=== PATIENT | female | born 1955 | race Caucasian/White ===

== ENCOUNTER 2022-03-23 04:09 | Emergency (ER) | payer MEDICARE, MEDICAID, SELFPAY ==
[2022-03-23 04:21] VITALS: BP 131/100; PULSE 90; RESP 16; TEMP 37.1; O2SAT 97; BMI 25.0
--- NOTE | 2022-03-23 04:23 | CTR_ITS ---
PROCEDURE INFORMATION: Exam: CT Abdomen And Pelvis Without Contrast Exam date and time: 03/23/2022 4:34 AM Age: 67 years old Clinical indication: Abdominal pain; Localized; Prior surgery; Surgery type: Gb. Appy. ; Patient HX: C/O lower abd/pelvic pain. ; Additional info: Abd pain TECHNIQUE: Imaging protocol: Computed tomography of the abdomen and pelvis without contrast. Radiation optimization: All CT scans at this facility use at least one of these dose optimization techniques: automated exposure control; mA and/or kV adjustment per patient size (includes targeted exams where dose is matched to clinical indication); or iterative reconstruction. COMPARISON: No relevant prior studies available. RADIATION DOSE METRICS: Total DLP (mGy-cm): 1021.14 FINDINGS: Lungs: The visualized lung bases demonstrate no focal airspace opacification or pleural effusion. Heart: The visualized heart is within normal limits for size. There is no evidence of pericardial abnormality. Diaphragm: Small hiatal hernia. Liver: The liver is normal in size and contour. Gallbladder and bile ducts: The gallbladder is surgically absent. Pancreas: Mild fatty atrophy of the pancreas. Spleen: The spleen appears normal. Adrenal glands: The adrenals appear normal. Kidneys and ureters: The kidneys empty into non-dilated ureters. Nonobstructing left-sided nephrolithiasis. No ureteral stones are identified. No perinephric or periureteral fat tissue stranding is identified. Stomach and bowel: A few colonic diverticula noted. No signs of acute diverticulitis. The stomach and small bowel are unremarkable. Appendix: The appendix is surgically absent. Intraperitoneal space: No ascites or significant fluid collection. Vasculature: The aorta is nonaneurysmal. The IVC appears normal. Lymph nodes: There are no enlarged lymph nodes. Urinary bladder: Mild wall thickening of the bladder with surrounding fat stranding. Reproductive: The uterus appears normal. Bones/joints: Mild multilevel degenerative changes in the spine. Soft tissues: Unremarkable. CT/CT kidney stone [id number] IMPRESSION: 1. Findings concerning for cystitis. Recommend correlation with urinalysis. 2. Nonobstructing left-sided nephrolithiasis. 3. Small hiatal hernia. 4. Colonic diverticulosis without evidence of acute diverticulitis. COMMENTS: Evaluation of solid organs and vascular structures is limited as no IV contrast was administered.
--- NOTE | 2022-03-23 04:24 | ED_ITS ---
Documented by User: Lissa Tilley MD 03/23/22 18:42 HPI - Abdominal Pain General: Chief Complaint: Abdominal Pain Stated Complaint: PT says kidney stones Time Seen by Provider: 03/23/22 04:20 Source: patient Mode of arrival: ambulatory Limitations: no limitations History of Present Illness: 67-year-old female who states she has been having suprapubic abdominal pain over the last 4 to 5 days she states she was referred to someone in [place] as her PCP checked her urine last week and she had blood in her urine she concerned she may have a kidney stone she has not been on any antibiotics has no known urinary tract infection and states her pain is sharp in nature rates an 8 out of 10 denies any vomiting or diarrhea or fevers denies any worsening improving factors Associated Symptoms: Denies chills, dysuria and fever(s) Review of Systems Const: Denies: fever(s), chills, body aches or change in appetite Eyes: Denies: blurry vision or eye discomfort ENMT: Denies: throat pain or dental pain Card: Denies: chest pain Resp: Denies: dyspnea GI: Reports: abdominal pain : Denies: dysuria Musc: Denies: neck pain or back pain Skin/Breast: Denies: rash Neuro: Denies: headache(s) Psych: Denies: depression Yariel/Lymph: Denies: easy bruising All/Imm: Denies: urticaria PFSH ED PFSH: Medical History (Updated 03/23/22 @ 06:17 by Blaze Louie DO) Hypertension Social History (Updated 03/23/22 @ 04:25 by Lissa Tilley MD) Substance/Drug Use: never Physical Exam Const: COMMON NORMALS: no acute distress, patient oriented x3 and healthy appearing HENMT: COMMON NORMALS: normocephalic and atraumatic HEAD & SCALP: normocephalic and atraumatic Eye: COMMON NORMALS: Equal, round and reactive pupils present and EOMs intact bilaterally PUPIL: Yes Equal, round and reactive pupils present Neck/C-Spine: COMMON NORMALS: full ROM and supple Chest: COMMONS NORMALS: normal inspection of the chest and normal palpation of entire chest wall Resp: COMMON NORMALS: normal respiratory effort, No retractions, No use of accessory muscles and clear to auscultation bilaterally AUSCULTATION: clear to auscultation bilaterally Cardio: COMMON NORMALS: regular rate, regular rhythm and No murmurs present (Cardio) RATE: regular rate RHYTHM: regular rhythm GI: COMMON NORMALS: Normal to inspection, nondistended, normoactive bowel sounds present, Soft to palpation and no masses PALPATION: Yes Soft to palpation OTHER: suprapubic tenderness Extremity: COMMON NORMALS: normal to inspection and full ROM Neuro: COMMON NORMALS: patient oriented x3, moves all extremities and no focal motor deficits Psych: COMMON NORMALS: mental status grossly normal, Normal thought process present and cooperative THOUGHT PROCESS: Normal thought process present Skin: COMMON NORMALS: no rashes or lesions noted and no wounds GENERAL SKIN EXAM: no rashes or lesions noted Course Vital Signs: Vital signs: Vital Signs Temperature 98.8 F 03/23/22 04:21 Pulse Rate 55 L 03/23/22 07:18 Respiratory Rate 16 03/23/22 07:18 Blood Pressure 103/55 03/23/22 07:18 Pulse Oximetry 98 03/23/22 07:18 MDM - Abdominal Pain Medical Decision Making Patient presents here with suprapubic pain likely a cystitis patient is pending her urinalysis care turned over to Dr. Valle Lab Data : 03/23/22 04:55 03/23/22 04:55 Labs/Radiology: Radiology Impressions Abdomen/Pelvis CT 03/23/22 04:23 IMPRESSION: 1. Findings concerning for cystitis. Recommend correlation with urinalysis. 2. Nonobstructing left-sided nephrolithiasis. 3. Small hiatal hernia. 4. Colonic diverticulosis without evidence of acute diverticulitis. COMMENTS: Evaluation of solid organs and vascular structures is limited as no IV contrast was administered. Laboratory Results WBC 6.0 10^3/uL (4.0-10.0) 03/23/22 04:55 RBC 4.24 10^6/uL (4.1-5.3) 03/23/22 04:55 Hgb 11.9 g/dL (11.5-15.3) 03/23/22 04:55 Hct 36.3 % (37.0-47.0) L 03/23/22 04:55 MCV 85.6 fl (81-99) 03/23/22 04:55 MCH 28.1 pg (28.0-34.0) 03/23/22 04:55 MCHC 32.8 g/dL (30.0-36.0) 03/23/22 04:55 RDW 14.2 % (12.1-15.1) 03/23/22 04:55 Plt Count 166 10^3/cmm (130-400) 03/23/22 04:55 MPV 11.5 fL (7.4-10.4) H 03/23/22 04:55 Neut % (Auto) 72.4 % 03/23/22 04:55 Lymph % (Auto) 15.7 % 03/23/22 04:55 [place] % (Auto) 7.2 % 03/23/22 04:55 Eos % (Auto) 3.7 % 03/23/22 04:55 Baso % (Auto) 0.7 % 03/23/22 04:55 Neut # (Auto) 4.32 10^3/uL (1.8-7.7) 03/23/22 04:55 Lymph # (Auto) 0.9 10^3/uL (0.8-4.8) 03/23/22 04:55 [place] # (Auto) 0.4 10^3/uL (0.2-0.9) 03/23/22 04:55 Eos # (Auto) 0.2 10^3/uL (0.0-0.8) 03/23/22 04:55 Baso # (Auto) 0.0 10^3/uL (0.0-0.1) 03/23/22 04:55 Nucleated RBC % (auto) 0 % 03/23/22 04:55 Nucleated RBCs # 0.0 /100WBC 03/23/22 04:55 Sodium 139 mmol/L (136-145) 03/23/22 04:55 Potassium 3.3 mmol/L (3.5-5.1) L 03/23/22 04:55 Chloride 106 mmol/L (98-107) 03/23/22 04:55 Carbon Dioxide 23 mmol/L (22-29) 03/23/22 04:55 Anion Gap 13.3 (5-19) 03/23/22 04:55 BUN 18 mg/dL (8-23) 03/23/22 04:55 Creatinine 1.0 mg/dL (0.5-0.9) H 03/23/22 04:55 GFR Calculation 55.6 mL/min (90-130) L 03/23/22 04:55 Glucose 111 mg/dL (65-115) 03/23/22 04:55 Calculated Osmolality 291 mOsm/kg (285-295) 03/23/22 04:55 Calcium 9.5 mg/dL (8.5-10.5) 03/23/22 04:55 Total Bilirubin 0.3 mg/dL (0.15-1.2) 03/23/22 04:55 AST 18 U/L (0-32) 03/23/22 04:55 ALT 12 U/L (0-33) 03/23/22 04:55 Alkaline Phosphatase 69 IU/L (35-105) 03/23/22 04:55 Total Protein 7.2 g/dL (6.6-8.7) 03/23/22 04:55 Albumin 4.1 g/dL (3.5-5.2) 03/23/22 04:55 Globulin 3.1 g/dL (1.3-4.6) 03/23/22 04:55 Lipase 33 U/L (13-60) 03/23/22 04:55 Urine Color Yellow (Yellow) 03/23/22 05:48 Urine Appearance Sl hazy (CLEAR) 03/23/22 05:48 Urine pH 5 (5-7) 03/23/22 05:48 Ur Specific [place] 1.010 (1.005-1.030) 03/23/22 05:48 Urine Protein Trace (Negative) 03/23/22 05:48 Urine Glucose (UA) Norm (Normal) 03/23/22 05:48 Urine Ketones Negative (Negative) 03/23/22 05:48 Urine Blood 2+ (Negative) H 03/23/22 05:48 Urine Nitrate Negative (Negative) 03/23/22 05:48 Urine Bilirubin Neg (Negative) 03/23/22 05:48 Urine Urobilinogen Norm mg/dL (Negative) 03/23/22 05:48 Ur Leukocyte Esterase 2+ (Negative) H 03/23/22 05:48 Urine RBC 15-25 /hpf (0-2) H 03/23/22 05:48 Urine WBC 55-80 /hpf (0-5) H 03/23/22 05:48 Ur Squamous Epith Cells 0-4 /hpf (0-5) H 03/23/22 05:48 Amorphous Sediment Not Reportable 03/23/22 05:48 Urine Bacteria Trace /hpf (NONE) 03/23/22 05:48 Urine Mucus Trace /hpf 03/23/22 05:48 Discharge Plan Discharge Patient Disposition: Home Clinical Impression: Cystitis Condition: Stable Prescriptions: New Cipro 500 mg tablet 500 mg PO BID Qty: 14 0RF Discharge Orders: Discharge ED (Routine); Ordered 03/23/22 Ordered By: Blaze Louie Discharge Diet: Usual diet Discharge Activity: Increase activity as tolerated Patient Instructions: Opioid Safety Activity Restrictions/Additional Instructions: Start oral antibiotics this evening. Follow-up with your primary care doctor if not improving. Return to emergency room if worsening. Sign Out Sign Out Data: Patient Sign Out occurred on 03/23/22 at 06:10. Patient's care was discussed, and care was transferred from to Blaze Louie DO. Coding Level of Care Code ED Orthotics Technician for Chg Fwd Exam Comprehensive Documented by User: Blaze Louie DO 03/29/22 14:48 HPI - Abdominal Pain General: Chief Complaint: Abdominal Pain Stated Complaint: PT says kidney stones Time Seen by Provider: 03/23/22 04:20 PFS ED PFSH: Medical History (Updated 03/23/22 @ 06:17 by Blaze Louie DO) Hypertension Social History (Updated 03/23/22 @ 04:25 by Lissa Tilley MD) Substance/Drug Use: never Course Vital Signs: Vital signs: Vital Signs Temperature 98.8 F 03/23/22 04:21 Pulse Rate 55 L 03/23/22 07:18 Respiratory Rate 16 03/23/22 07:18 Blood Pressure 103/55 03/23/22 07:18 Pulse Oximetry 98 03/23/22 07:18 MDM - Abdominal Pain Medical Decision Making Patient presents here with suprapubic pain likely a cystitis patient is pending her urinalysis care turned over to Dr. Valle Care assumed at change of shift. UA reviewed shows cystitis discharged home with antibiotics follow-up with primary care Medical Records I reviewed the patient's medical records. Lab Data I reviewed the patient's lab results. : 03/23/22 04:55 03/23/22 04:55 Labs/Radiology: Radiology Impressions Abdomen/Pelvis CT 03/23/22 04:23 IMPRESSION: 1. Findings concerning for cystitis. Recommend correlation with urinalysis. 2. Nonobstructing left-sided nephrolithiasis. 3. Small hiatal hernia. 4. Colonic diverticulosis without evidence of acute diverticulitis. COMMENTS: Evaluation of solid organs and vascular structures is limited as no IV contrast was administered. Laboratory Results WBC 6.0 10^3/uL (4.0-10.0) 03/23/22 04:55 RBC 4.24 10^6/uL (4.1-5.3) 03/23/22 04:55 Hgb 11.9 g/dL (11.5-15.3) 03/23/22 04:55 Hct 36.3 % (37.0-47.0) L 03/23/22 04:55 MCV 85.6 fl (81-99) 03/23/22 04:55 MCH 28.1 pg (28.0-34.0) 03/23/22 04:55 MCHC 32.8 g/dL (30.0-36.0) 03/23/22 04:55 RDW 14.2 % (12.1-15.1) 03/23/22 04:55 Plt Count 166 10^3/cmm (130-400) 03/23/22 04:55 MPV 11.5 fL (7.4-10.4) H 03/23/22 04:55 Neut % (Auto) 72.4 % 03/23/22 04:55 Lymph % (Auto) 15.7 % 03/23/22 04:55 [place] % (Auto) 7.2 % 03/23/22 04:55 Eos % (Auto) 3.7 % 03/23/22 04:55 Baso % (Auto) 0.7 % 03/23/22 04:55 Neut # (Auto) 4.32 10^3/uL (1.8-7.7) 03/23/22 04:55 Lymph # (Auto) 0.9 10^3/uL (0.8-4.8) 03/23/22 04:55 [place] # (Auto) 0.4 10^3/uL (0.2-0.9) 03/23/22 04:55 Eos # (Auto) 0.2 10^3/uL (0.0-0.8) 03/23/22 04:55 Baso # (Auto) 0.0 10^3/uL (0.0-0.1) 03/23/22 04:55 Nucleated RBC % (auto) 0 % 03/23/22 04:55 Nucleated RBCs # 0.0 /100WBC 03/23/22 04:55 Sodium 139 mmol/L (136-145) 03/23/22 04:55 Potassium 3.3 mmol/L (3.5-5.1) L 03/23/22 04:55 Chloride 106 mmol/L (98-107) 03/23/22 04:55 Carbon Dioxide 23 mmol/L (22-29) 03/23/22 04:55 Anion Gap 13.3 (5-19) 03/23/22 04:55 BUN 18 mg/dL (8-23) 03/23/22 04:55 Creatinine 1.0 mg/dL (0.5-0.9) H 03/23/22 04:55 GFR Calculation 55.6 mL/min (90-130) L 03/23/22 04:55 Glucose 111 mg/dL (65-115) 03/23/22 04:55 Calculated Osmolality 291 mOsm/kg (285-295) 03/23/22 04:55 Calcium 9.5 mg/dL (8.5-10.5) 03/23/22 04:55 Total Bilirubin 0.3 mg/dL (0.15-1.2) 03/23/22 04:55 AST 18 U/L (0-32) 03/23/22 04:55 ALT 12 U/L (0-33) 03/23/22 04:55 Alkaline Phosphatase 69 IU/L (35-105) 03/23/22 04:55 Total Protein 7.2 g/dL (6.6-8.7) 03/23/22 04:55 Albumin 4.1 g/dL (3.5-5.2) 03/23/22 04:55 Globulin 3.1 g/dL (1.3-4.6) 03/23/22 04:55 Lipase 33 U/L (13-60) 03/23/22 04:55 Urine Color Yellow (Yellow) 03/23/22 05:48 Urine Appearance Sl hazy (CLEAR) 03/23/22 05:48 Urine pH 5 (5-7) 03/23/22 05:48 Ur Specific [place] 1.010 (1.005-1.030) 03/23/22 05:48 Urine Protein Trace (Negative) 03/23/22 05:48 Urine Glucose (UA) Norm (Normal) 03/23/22 05:48 Urine Ketones Negative (Negative) 03/23/22 05:48 Urine Blood 2+ (Negative) H 03/23/22 05:48 Urine Nitrate Negative (Negative) 03/23/22 05:48 Urine Bilirubin Neg (Negative) 03/23/22 05:48 Urine Urobilinogen Norm mg/dL (Negative) 03/23/22 05:48 Ur Leukocyte Esterase 2+ (Negative) H 03/23/22 05:48 Urine RBC 15-25 /hpf (0-2) H 03/23/22 05:48 Urine WBC 55-80 /hpf (0-5) H 03/23/22 05:48 Ur Squamous Epith Cells 0-4 /hpf (0-5) H 03/23/22 05:48 Amorphous Sediment Not Reportable 03/23/22 05:48 Urine Bacteria Trace /hpf (NONE) 03/23/22 05:48 Urine Mucus Trace /hpf 03/23/22 05:48 Discharge Plan Discharge Patient Disposition: Home Clinical Impression: Cystitis Condition: Stable Prescriptions: New Cipro 500 mg tablet 500 mg PO BID Qty: 14 0RF Discharge Orders: Discharge ED (Routine); Ordered 03/23/22 Ordered By: Blaze Louie Discharge Diet: Usual diet Discharge Activity: Increase activity as tolerated Patient Instructions: Opioid Safety Activity Restrictions/Additional Instructions: Start oral antibiotics this evening. Follow-up with your primary care doctor if not improving. Return to emergency room if worsening. Sign Out Sign Out Data: Patient Sign Out occurred on 03/23/22 at 06:10. Patient's care was discussed, a nd care was transferred from to Blaze Louie DO. Coding Level of Care Code ED Orthotics Technician for [place] Fwd Exam Comprehensive
[2022-03-23 04:58] VITALS: BP 119/60; PULSE 68; RESP 16; O2SAT 97
[2022-03-23 05:00] LABS: Basophils % 0.7 %; Eosinophils # 0.2 10^3/uL (0.0-0.8); Eosinophils % 3.7 %; Hematocrit 36.3 % (37.0-47.0); Hemoglobin 11.9 g/dL (11.5-15.3); Lymphocytes # 0.9 10^3/uL (0.8-4.8); Lymphocytes % 15.7 %; Mean Corpuscular HGB Conc 32.8 g/dL (30.0-36.0); Mean Corpuscular Hemoglobin 28.1 pg (28.0-34.0); Mean Corpuscular Volume 85.6 fl (81-99); Mean Platelet Volume 11.5 fL (7.4-10.4); Monocytes # 0.4 10^3/uL (0.2-0.9); Monocytes % 7.2 %; Neutrophils # 4.32 10^3/uL (1.8-7.7); Neutrophils % 72.4 %; Nucleated Red Blood Cells % 0 %; Platelet Count 166 10^3/cmm (130-400); Red Blood Count 4.24 10^6/uL (4.1-5.3); Red Cell Distribution Width 14.2 % (12.1-15.1)
[2022-03-23 05:04] VITALS: RESP 16; O2SAT 96
[2022-03-23] MEDS: morphine 4 mg/mL SDV 1 mL IVP (05:04)
[2022-03-23] MEDS: ondansetron 2 mg/ML SDV 2 mL 4 MG IVP (05:04)
[2022-03-23 05:27] LABS: Alanine Aminotransferase 12 U/L (0-33); Albumin Level 4.1 g/dL (3.5-5.2); Alkaline Phosphatase 69 IU/L (35-105); Anion Gap 13.3 (5-19); Aspartate Amino Transferase 18 U/L (0-32); Blood Urea Nitrogen 18 mg/dL (8-23); Calcium 9.5 mg/dL (8.5-10.5); Carbon Dioxide 23 mmol/L (22-29); Chloride 106 mmol/L (98-107); Globulin 3.1 g/dL (1.3-4.6); Glomerular Filtration Rate 55.6 mL/min (90-130); Glucose 111 mg/dL (65-115); Lipase 33 U/L (13-60); Osmolality Calculated 291 mOsm/kg (285-295); Potassium 3.3 mmol/L (3.5-5.1); Sodium 139 mmol/L (136-145); Total Bilirubin 0.3 mg/dL (0.15-1.2); Total Protein 7.2 g/dL (6.6-8.7)
[2022-03-23 06:11] LABS: Add Urine Microscopic? YES; Bilirubin Urine Neg (Negative); Blood Urine 2+ (Negative); Glucose Urine UA Norm (Normal); Ketones Urine Negative (Negative); Leukocyte Esterase Urine 2+ (Negative); Nitrate Urine Negative (Negative); Protein Urine Trace (Negative); Urine Appearance SL Hazy (CLEAR); Urine Color Yellow (Yellow); Urobilinogen Urine Norm (Negative); pH Urine 5 (5-7)
[2022-03-23 06:15] VITALS: BP 111/65; PULSE 64; RESP 16; O2SAT 92
[2022-03-23 06:19] LABS: Add Urine Culture? Yes; Bacteria Urine TRACE /hpf; Mucus Urine TRACE /hpf; RBC Urine 15-25 /hpf (0-2); Squamous Epithelial Cell Urine 0-4 /hpf (0-5); WBC Urine 55-80 /hpf (0-5)
[2022-03-23] MEDS: cefTRIAXone 1,000 MG in sodium chloride 0.9% (plus) 50 ML 100 MG IV (06:27)
[2022-03-23 06:45] VITALS: BP 109/59; PULSE 55; RESP 16; O2SAT 99
[2022-03-23 07:18] VITALS: BP 103/55; PULSE 55; RESP 16; O2SAT 98
== END 2022-03-23 07:22 | disposition home or self-care (01) ==
PROVIDERS: Emergency Medicine; Emergency Provider Family Medicine
DX: N30.90 Cystitis, unspecified without hematuria (principal)
CPT/HCPCS: 74176; 80053; 81001; 83690; 85025; 87086; 96365; 96375; 99284; J0696; J2270; J2405

== ENCOUNTER 2022-10-30 14:14 | Observation (INO) | payer MEDICARE, MEDICAID, SELFPAY ==
[2022-10-30 14:22] VITALS: BP 117/74; PULSE 90; RESP 16; TEMP 37.6; O2SAT 92
--- NOTE | 2022-10-30 14:27 | W.ED.WEAKNES ---
HPI - Weakness General: Chief complaint: Weakness Stated complaint: fatigue,cant walk Time Seen by Provider: 10/30/22 14:26 History of Present Illness: Ms. Riley is a 67-year-old lady with history of hypertension presenting to the emergency department due to generalized illness. Onset of symptoms was 3 days ago and subacute. She has had numerous episodes of diarrhea and associated weakness. Weakness is worse in the right lower extremity and she now has difficulty walking. 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 Intensity symptoms is moderate to severe. Course has worsened. No other specific changes in health, exacerbating, or alleviating factors identified. Onset (ago): day(s) Duration: progressively worsening Severity: moderate Associated symptoms: Reports nausea; Denies chest pain, chills, headache(s), short of breath or vomiting Review of Systems General: Reports: 10 or more systems reviewed and unremarkable except in HPI and below Const: Denies: chills Card: Denies: chest pain GI: Reports: nausea; Denies: vomiting Neuro: Denies: headache(s) PFSH ED PFSH: Medical History Hypertension Osteoarthritis Rheumatoid arthritis Surgical History Hx of cholecystectomy Family History Denies family history of CAD (coronary artery disease) Social History (Updated 10/30/22 @ 20:58 by Elma Hadley MD) Smoking and tobacco status: never smoked Alcohol intake: never Physical Exam Const: COMMON NORMALS: patient oriented x3 and alert GENERAL APPEARANCE: cooperative and well developed HENMT: COMMON NORMALS: normocephalic and atraumatic HEAD & SCALP: normocephalic and atraumatic Eye: COMMON NORMALS: conjunctivae normal CONJUNCTIVA: Yes conjunctivae normal SCLERA: sclerae normal Neck/C-Spine: COMMON NORMALS: supple GENERAL: Yes trachea midline Resp: COMMON NORMALS: normal respiratory effort EFFORT & INSPECTION: Yes able to speak in complete sentences Cardio: COMMON NORMALS: regular rate and regular rhythm RATE: regular rate RHYTHM: regular rhythm GI: COMMON NORMALS: Soft to palpation PALPATION: Yes Soft to palpation, Yes Tenderness to palpation present (GI), No Guarding due to palpation present (GI) and No Rigid due to palpation PERCUSSION: normal to percussion Extremity: NARRATIVE EXTREMITY EXAM: Right lower extremity 2/5 strength more proximal muscle weakness GENERAL: Yes normal exam except as noted and No edema Neuro: COMMON NORMALS: patient oriented x3, CN's II-XII intact bilaterally, moves all extremities and no sensory deficits noted SENSORIUM/ORIENTATION: Yes alert and No Orientation impaired Psych: COMMON NORMALS: mental status grossly normal and Normal thought process present THOUGHT PROCESS: Normal thought process present Course Vital Signs: Vital signs: Vital Signs Temperature 98 F 11/02/22 04:00 Pulse Rate 74 11/02/22 07:31 Respiratory Rate 16 11/02/22 07:31 Blood Pressure 101/63 11/02/22 04:00 Pulse Oximetry 93 11/02/22 07:31 Oxygen Delivery Me thod 11/02/22 07:31 Oxygen Flow Rate 2 11/02/22 07:31 MDM - Weakness Medical Decision Making 67-year-old lady presenting with generalized illness including worsening right lower extremity weakness. Exam as above with right lower extremity weakness noted though no other focal neurodeficits appreciated. Labs with leukopenia, evidence of dehydration including elevated creatinine. Urinalysis positive for urinary tract infection and patient has RSV and influenza which likely explains generalized illness. CT head negative for acute intracranial pathology. CT abdomen pelvis notable for likely cystitis, incidental findings noted. Upon reassessment after IV fluids patient only modestly improved and still feels quite weak unable to ambulate. She was given ceftriaxone for urinary tract infection. Most likely etiology of symptoms is UTI with viral syndrome and recrudescence of neurologic symptoms secondary to generalized physiologic stress/illness. The results of ED evaluation were discussed with the patient including plan for admission due to requirement for level of care not available if discharged to prevent significant worsening/deterioration. Patient agreeable with plan. Discussed with hospitalist service who was agreeable to admit patient. Medical Records I reviewed the patient's medical records. Lab Data I reviewed the patient's lab results. 11/02/22 02:55 10/31/22 04:06 Radiology Impressions Abdomen/Pelvis CT 10/30/22 15:42 IMPRESSION: 1. Cystitis. Similar findings were present on 03/23/2022. This may be chronic or recurrent. 2. Incidental findings above. Head CT 10/30/22 15:42 IMPRESSION: No acute intracranial abnormality demonstrated. Laboratory Results WBC 3.3 10^3/uL (4.0-10.0) L 10/30/22 14:50 RBC 5.41 10^6/uL (4.1-5.3) H 10/30/22 14:50 Hgb 14.9 g/dL (11.5-15.3) 10/30/22 14:50 Hct 46.3 % (37.0-47.0) 10/30/22 14:50 MCV 85.6 fl (81-99) 10/30/22 14:50 MCH 27.5 pg (28.0-34.0) L 10/30/22 14:50 MCHC 32.2 g/dL (30.0-36.0) 10/30/22 14:50 RDW 13.7 % (12.1-15.1) 10/30/22 14:50 Plt Count 143 10^3/cmm (130-400) 10/30/22 14:50 MPV 12.4 fL (7.4-10.4) H 10/30/22 14:50 Neut % (Auto) 71.7 % 10/30/22 14:50 Lymph % (Auto) 16.6 % 10/30/22 14:50 [place] % (Auto) 10.8 % 10/30/22 14:50 Eos % (Auto) 0.3 % 10/30/22 14:50 Baso % (Auto) 0.3 % 10/30/22 14:50 Neut # (Auto) 2.33 10^3/uL (1.8-7.7) 10/30/22 14:50 Lymph # (Auto) 0.5 10^3/uL (0.8-4.8) L 10/30/22 14:50 [place] # (Auto) 0.4 10^3/uL (0.2-0.9) 10/30/22 14:50 Eos # (Auto) 0.0 10^3/uL (0.0-0.8) 10/30/22 14:50 Baso # (Auto) 0.0 10^3/uL (0.0-0.1) 10/30/22 14:50 Nucleated RBC % (auto) 0 % 10/30/22 14:50 Nucleated RBCs # 0.0 /100WBC 10/30/22 14:50 Sodium 133 mmol/L (136-145) L 10/30/22 14:50 Potassium 3.9 mmol/L (3.5-5.1) 10/30/22 14:50 Chloride 97 mmol/L (98-107) L 10/30/22 14:50 Carbon Dioxide 20 mmol/L (22-29) L 10/30/22 14:50 Anion Gap 19.9 (5-19) H 10/30/22 14:50 BUN 46 mg/dL (8-23) H 10/30/22 14:50 Creatinine 1.6 mg/dL (0.5-0.9) H 10/30/22 14:50 GFR Calculation 32.3 mL/min (90-130) L 10/30/22 14:50 Glucose 98 mg/dL (65-115) 10/30/22 14:50 Calculated Osmolality 288 mOsm/kg (285-295) 10/30/22 14:50 Lactic Acid 1.6 mmol/L (0.5-2.2) 10/30/22 14:50 Calcium 9.6 mg/dL (8.5-10.5) 10/30/22 14:50 Magnesium 2.0 mg/dL (1.7-2.3) 10/30/22 14:50 Total Bilirubin 0.5 mg/dL (0.15-1.2) 10/30/22 14:50 AST 86 U/L (0-32) H 10/30/22 14:50 ALT 27 U/L (0-33) 10/30/22 14:50 Alkaline Phosphatase 75 U/L (35-105) 10/30/22 14:50 C-Reactive Protein 12.1 mg/L (0.0-4.9) H 10/30/22 14:50 Total Protein 8.4 g/dL (6.6-8.7) 10/30/22 14:50 Albumin 4.1 g/dL (3.5-5.2) 10/30/22 14:50 Globulin 4.3 g/dL (1.3-4.6) 10/30/22 14:50 Vitamin B12 1129 pg/mL (232-1245) 10/30/22 14:50 Procalcitonin 0.33 ng/mL (0-0.5) 10/30/22 14:50 Procalcitonin 0.33 ng/mL (0-0.5) 10/30/22 14:50 TSH 10.46 uIU/mL (0.27-4.20) H 10/30/22 14:50 Free T4 1.20 ng/dL (0.82-1.77) 10/30/22 14:50 Urine Color Yellow (Yellow) 10/30/22 19:05 Urine Appearance Sl hazy (CLEAR) A 10/30/22 19:05 Urine pH 5 (5-7) 10/30/22 19:05 Ur Specific [place] 1.005 (1.005-1.030) 10/30/22 19:05 Urine Protein 1+ (Negative) H 10/30/22 19:05 Urine Glucose (UA) Norm (Normal) 10/30/22 19:05 Urine Ketones 2+ (Negative) H 10/30/22 19:05 Urine Blood 2+ (Negative) H 10/30/22 19:05 Urine Nitrate Negative (Negative) 10/30/22 19:05 Urine Bilirubin Neg (Negative) 10/30/22 19:05 Urine Urobilinogen Neg mg/dL (Negative) 10/30/22 19:05 Ur Leukocyte Esterase 1+ (Negative) H 10/30/22 19:05 Urine RBC 10-15 /hpf (0-2) H 10/30/22 19:05 Urine WBC 40-55 /hpf (0-5) H 10/30/22 19:05 Ur Squamous Epith Cells 0-4 /hpf (0-5) H 10/30/22 19:05 Amorphous Sediment Not Reportable 10/30/22 19:05 Urine Bacteria 2+ /hpf (NONE) H 10/30/22 19:05 Nasal Influ A H1 2009 PCR Detected (NOT DETECT) A 10/30/22 19: Coronavirus 229E (PCR) Not detected (NOT DETECT) 10/30/22 15:00 Influenza A (H1) PCR Not detected (NOT DETECT) 10/30/22 19: Influenza A (H3) PCR Not detected (NOT DETECT) 10/30/22 19:31 Influenza Type A (PCR) Detected (NOT DETECT) A 10/30/22 19:31 Influenza Type B (PCR) Not detected (NOT DETECT) 10/30/22 19:31 RSV Type A (PCR) Detected (NOT DETECT) A 10/30/22 19:31 RSV Type B (PCR) Not detected (NOT DETECT) 10/30/22 19:31 SARS-CoV-2 (PCR) Not detected (NOT DETECT) 10/30/22 15:00 Discharge Plan Discharge Patient Disposition: Placed in Observation Admit Provider: Elma Hadley Clinical Impression: RSV infection, Flu, [place] (acute kidney injury), Weakness Coding Level of Care Code ED Temperature Inspector for Chg Fwd Exam Comprehensive
[2022-10-30 14:54] VITALS: BP 107/77; PULSE 96; RESP 18; O2SAT 93
[2022-10-30 15:02] LABS: Basophils % 0.3 %; Eosinophils % 0.3 %; Hematocrit 46.3 % (37.0-47.0); Hemoglobin 14.9 g/dL (11.5-15.3); Lymphocytes # 0.5 10^3/uL (0.8-4.8); Lymphocytes % 16.6 %; Mean Corpuscular HGB Conc 32.2 g/dL (30.0-36.0); Mean Corpuscular Hemoglobin 27.5 pg (28.0-34.0); Mean Corpuscular Volume 85.6 fl (81-99); Mean Platelet Volume 12.4 fL (7.4-10.4); Monocytes # 0.4 10^3/uL (0.2-0.9); Monocytes % 10.8 %; Neutrophils # 2.33 10^3/uL (1.8-7.7); Neutrophils % 71.7 %; Nucleated Red Blood Cells % 0 %; Platelet Count 143 10^3/cmm (130-400); Red Blood Count 5.41 10^6/uL (4.1-5.3); Red Cell Distribution Width 13.7 % (12.1-15.1); White Blood Count 3.3 10^3/uL (4.0-10.0)
[2022-10-30] MEDS: sodium chloride 0.9% 1,000 ML 999 ML IV ×2 (15:26→19:48)
[2022-10-30 15:37] LABS: Procalcitonin 0.33 ng/mL (0-0.5); Thyroid Stimulating Hormone 10.46 uIU/mL (0.27-4.20)
--- NOTE | 2022-10-30 15:42 | CTR_ITS ---
PROCEDURE INFORMATION: Exam: CT Abdomen And Pelvis With Contrast Exam date and time: 10/30/2022 4:52 PM Age: 67 years old Clinical indication: Nausea; Additional info: N/d, weakness TECHNIQUE: Imaging protocol: Computed tomography of the abdomen and pelvis with contrast. Radiation optimization: All CT scans at this facility use at least one of these dose optimization techniques: automated exposure control; mA and/or kV adjustment per patient size (includes targeted exams where dose is matched to clinical indication); or iterative reconstruction. Contrast material: OMNI 350; Contrast volume: 100 ml; Contrast route: INTRAVENOUS (IV); COMPARISON: CT kidney stone [id number] 03/23/2022 4:34 AM RADIATION DOSE METRICS: Total DLP (mGy-cm): 586.61 FINDINGS: Lungs: There is a calcified granuloma in the right lower lobe. There is dependent atelectasis and volume loss in the left lower lobe. Liver: The liver is normal. Gallbladder and bile ducts: The gallbladder is absent. There is no intrahepatic or extrahepatic bile duct dilation. Pancreas: Mild fatty atrophy of the pancreas. Spleen: The spleen is unremarkable. Adrenal glands: The adrenal glands are unremarkable. Kidneys and ureters: The right kidney and ureter are unremarkable. There is a nonobstructive stone in the left kidney. There is no hydronephrosis or ureteral dilation on the left. Stomach and bowel: The stomach is decompressed, preventing meaningful evaluation of wall thickness. The small bowel is nondilated. The colon is unremarkable. Appendix: No evidence of appendicitis. Intraperitoneal space: There is no free air or significant intraperitoneal free fluid. Vasculature: There is moderate aortic atherosclerotic disease. The portal, splenic and superior mesenteric veins are patent. 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 Lymph nodes: There is no lymphadenopathy in the retroperitoneum, mesentery, pelvis or inguinal regions. Urinary bladder: There is marked diffuse bladder wall thickening. There is mucosal hyperemia. There is pericystic edema. Reproductive: The uterus is unremarkable. There is no adnexal mass or large cyst. Bones/joints: There is mild degenerative disease in the lumbar spine. The pelvis and hips are unremarkable. Soft tissues: The abdominal wall is intact. CT/CT abdomen pelvis w con* [id number] IMPRESSION: 1. Cystitis. Similar findings were present on 03/23/2022. This may be chronic or recurrent. 2. Incidental findings above.
--- NOTE | 2022-10-30 15:42 | CTR_ITS ---
PROCEDURE INFORMATION: Exam: CT Head Without Contrast Exam date and time: 10/30/2022 4:48 PM Age: 67 years old Clinical indication: Weakness, extremity; Right; Additional info: Rle weakness TECHNIQUE: Imaging protocol: Computed tomography of the head without contrast. Radiation optimization: All CT scans at this facility use at least one of these dose optimization techniques: automated exposure control; mA and/or kV adjustment per patient size (includes targeted exams where dose is matched to clinical indication); or iterative reconstruction. COMPARISON: No relevant prior studies available. RADIATION DOSE METRICS: Total DLP (mGy-cm): 1123.98 FINDINGS: Brain: There is decreased attenuation of the periventricular white matter, consistent with chronic microangiopathic white matter disease. 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 No parenchymal edema identified. No intracranial hemorrhage noted. Cerebral ventricles: No ventriculomegaly. Paranasal sinuses: Mucoperiosteal thickening in the bilateral ethmoid and left maxillary sinuses.Age related parenchymal volume loss noted. Mastoid air cells: Unremarkable as visualized. No mastoid effusion. Bones/joints: Unremarkable. No acute fracture. Soft tissues: Unremarkable. CT/CT head wo con* [id number] IMPRESSION: No acute intracranial abnormality demonstrated.
[2022-10-30 15:49] LABS: Alanine Aminotransferase 27 U/L (0-33); Albumin Level 4.1 g/dL (3.5-5.2); Alkaline Phosphatase 75 U/L (35-105); Anion Gap 19.9 (5-19); Aspartate Amino Transferase 86 U/L (0-32); Blood Urea Nitrogen 46 mg/dL (8-23); C Reactive Protein 12.1 mg/L (0.0-4.9); Calcium 9.6 mg/dL (8.5-10.5); Carbon Dioxide 20 mmol/L (22-29); Chloride 97 mmol/L (98-107); Globulin 4.3 g/dL (1.3-4.6); Glomerular Filtration Rate 32.3 mL/min (90-130); Glucose 98 mg/dL (65-115); Osmolality Calculated 288 mOsm/kg (285-295); Potassium 3.9 mmol/L (3.5-5.1); Sodium 133 mmol/L (136-145); Total Bilirubin 0.5 mg/dL (0.15-1.2); Total Protein 8.4 g/dL (6.6-8.7)
[2022-10-30 16:24] VITALS: BP 116/80; PULSE 83; O2SAT 93
[2022-10-30] MEDS: iohexol 350 mg/mL 500 mL Btl (per mL) IV (16:57)
[2022-10-30 18:33] LABS: Adenovirus Not Detected (NOT DETECT); Chlamydia Pneumoniae Not Detected (NOT DETECT); Coronavirus 229E,HKU1,NL63,OC4 Not Detected (NOT DETECT); Human Metapneumovirus Not Detected (NOT DETECT); Human Rhinovirus/Enterovirus Not Detected (NOT DETECT); Influenza A Detected (NOT DETECT); Influenza A H1 Not Detected (NOT DETECT); Influenza A H1-2009 Detected (NOT DETECT); Influenza A H3 Not Detected (NOT DETECT); Influenza B Not Detected (NOT DETECT); Mycoplasma Pneumoniae Not Detected (NOT DETECT); Parainfluenza Virus Type 1 Not Detected (NOT DETECT); Parainfluenza Virus Type 2 Not Detected (NOT DETECT); Parainfluenza Virus Type 3 Not Detected (NOT DETECT); Parainfluenza Virus Type 4 Not Detected (NOT DETECT); Respiratory Syncytial Virus A Detected (NOT DETECT); Respiratory Syncytial Virus B Not Detected (NOT DETECT); SARS-COV-2 Not Detected (NOT DETECT)
[2022-10-30 19:30] VITALS: BP 118/74; PULSE 112; RESP 24; O2SAT 94
[2022-10-30 19:32] LABS: Influenza A Detected (NOT DETECT); Influenza A H1 Not Detected (NOT DETECT); Influenza A H1-2009 Detected (NOT DETECT); Influenza A H3 Not Detected (NOT DETECT); Influenza B Not Detected (NOT DETECT); Respiratory Syncytial Virus A Detected (NOT DETECT); Respiratory Syncytial Virus B Not Detected (NOT DETECT); Results from Genmark
[2022-10-30 19:45] LABS: Urine Appearance SL Hazy (CLEAR); Urine Color Yellow (Yellow)
[2022-10-30 19:46] LABS: Blood Urine 2+ (Negative); Glucose Urine UA Norm (Normal); Ketones Urine 2+ (Negative); Protein Urine 1+ (Negative); Specific Gravity, Urine 1.005 (1.005-1.030); pH Urine 5 (5-7)
[2022-10-30 19:47] LABS: Add Urine Microscopic? YES; Bilirubin Urine Neg (Negative); Leukocyte Esterase Urine 1+ (Negative); Nitrate Urine Negative (Negative); Urobilinogen Urine Neg (Negative)
--- NOTE | 2022-10-30 19:49 | PM.HP ---
Providers/Chief Complaint Chief Complaint: fatigue,cant walk History of Present Illness Inez Riley is a 67 year old female who presented to the hospital with chief complaint of diarrhea and generalized fatigue. Patient's symptoms started roughly 6 days ago, she takes care of her grand children, she has been experiencing fatigue, lethargy and fatigue for quite some days today she started having worsening of diarrhea that prompted her visit to the ER. Patient has not experienced any fever, chest pain, shortness of breath. Her appetite is very poor she has not eaten well in last few days. 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 fib, she does not take any anticoagulating agent She has received 2 L of IV bolus I will get lactic acid, she has received antibiotics Review of Systems Const: Reports: chills; Denies: body aches Eyes: Denies: change in vision ENMT: Denies: throat pain Card: Denies: chest pain Resp: Denies: dyspnea GI: Reports: diarrhea : Denies: flank pain Musc: Denies: neck pain Skin/Breast: Denies: rash Neuro: Denies: headache(s) Psych: Denies: anxiety Endo: Denies: polyuria Yariel/Lymph: Denies: easy bruising All/Imm: Denies: urticaria Medications/Allergies Home Medications Medication Instructions Recorded Confirmed Last Taken Type albuterol sulfate 90 mcg/actuation 2 puff inhalation QID PRN 10/30/22 10/30/22 Unknown History aerosol inhaler Shortness Of Breath gabapentin 100 mg capsule 100 mg PO TID 10/30/22 10/30/22 10/30/22 History hydroxychloroquine 200 mg tablet 400 mg PO DAILY 10/30/22 10/30/22 10/30/22 History levothyroxine 75 mcg tablet 75 mcg PO DAILY 10/30/22 10/30/22 10/30/22 History metoprolol succinate 25 mg 25 mg PO DAILY 10/30/22 10/30/22 10/30/22 History tablet,extended release 24 hr mirabegron 25 mg tablet,extended 25 mg PO DAILY 10/30/22 10/30/22 10/30/22 History release 24 hr (Myrbetriq) rosuvastatin 20 mg tablet 20 mg PO DAILY 10/30/22 10/30/22 10/29/22 History upadacitinib 15 mg tablet,extended 15 mg PO DAILY 10/30/22 10/30/22 10/30/22 History release 24 hr (Rinvoq) verapamil 120 mg 24 hr 120 mg PO DAILY 10/30/22 10/30/22 10/30/22 History capsule,extended release Allergies Allergy/AdvReac Type Severity Reaction Status Date / Time latex Allergy Unknown Verified 10/30/22 18:41 Penicillins Allergy ALGY-Rash Verified 03/23/22 04:26 PFSH Acute PFSH: Medical History Hypertension Osteoarthritis Rheumatoid arthritis Surgical History Hx of cholecystectomy Family History Denies family history of CAD (coronary artery disease) Social History (Updated 10/30/22 @ 20:58 by Elma Hadley MD) Smoking and tobacco status: never smoked Alcohol intake: never Vitals/I&O/Wt Last Vital Signs Temp 99.6 F 10/30/22 14:22 Pulse 112 H 10/30/22 19:30 Resp 24 H 10/30/22 19:30 BP 118/74 10/30/22 19:30 Pulse Ox 94 10/30/22 19:30 O2 Del Method 10/30/22 19:30 Weight last 48 hrs Weight 68.039 kg Physical Exam Narrative: Clinically patient is dehydrated Very pleasant cooperative Sitting in her bed Saturating well on room air Hemodynamically stable A. fib RVR Abdomen soft No audible stridor or wheezing No focal neuro exam Pleasant cooperative Appropriate mood and affect Lower extremity no edema Sepsis: Is patient septic: Yes Focused sepsis exam performed: Yes Focused sepsis exam: Catheter refill normal No encephalopathy No skin mottling Awake and alert Date exam was performed: 10/30/22 Time exam was performed: 20:59 Data 10/30/22 14:50 10/30/22 14:50 Micro: Microbiology 10/30/22 14:54 Blood Culture - Preliminary Blood SPECIMEN COLLECTED 10/30/22 14:50 Blood Culture - Preliminary Blood SPECIMEN COLLECTED A&P Assessment and plan (1) RSV infection: (2) Flu: (3) BERKLEY (acute kidney injury): (4) Weakness: Plan Sepsis related to UTI Upper respiratory tract infection for influenza A and RSV Criteria met with tachycardia, tachypnea, leukopenia I have requested a lactic acid she had received 2 L of bolus in the ER, received antibiotics as well Repeating blood culture, urine culture Sputum analysis DuoNeb every 4 as needed Start IV fluid hydration overnight BERKLEY related to dehydration A. fib RVR continue metoprolol and verapamil Patient does not take any anticoagulating agent, [id number] is 1 History of rheumatoid and osteoarthritis, uses walker because of right knee pain History of hypothyroidism: Continue levothyroxine, we might have to increase the dose of levothyroxine to 100 mcg Full code Cardiac diet Diet, patient is not complaining of dysuria, no active symptoms of UTI however abnormal UA cystitis present on CT abdomen pelvis start ceftriaxone Attestations Medical Necessity Statement*: Anticipating discharge within 48 hours will need IV fluid hydration and antibiotics Time Spent in Patient Care: 40 Coding Level of 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
[2022-10-30 19:53] LABS: Add Urine Culture? Yes; Bacteria Urine 2+ /hpf; Squamous Epithelial Cell Urine 0-4 /hpf (0-5); WBC Urine 40-55 /hpf (0-5)
[2022-10-30] MEDS: cefTRIAXone 1,000 MG in sodium chloride 0.9% (plus) 50 ML 100 MG IV (20:57)
[2022-10-30 20:58] LABS: Procalcitonin 0.33 ng/mL (0-0.5)
[2022-10-30 21:04] VITALS: BP 117/67; PULSE 100; RESP 20; O2SAT 95
[2022-10-30] MEDS: heparin 5,000 unit/mL INJ 1 mL 5000 UNIT SUBCUT (21:56)
[2022-10-30] MEDS: gabapentin 100 mg Capsule PO (21:56)
[2022-10-30] MEDS: sodium chloride 0.9% 1,000 ML 75 ML IV (21:56)
[2022-10-30 22:13] LABS: Lactic Sepsis W/Reflex 1.6 mmol/L (0.5-2.2)
[2022-10-30 23:45] LABS: Vitamin B12 1129 pg/mL (232-1245)
[2022-10-31] VITALS (9 sets, daily range): BP systolic 87–123; BP diastolic 52–70; PULSE 68–115; RESP 15–17; TEMP 36.6–37.7; O2SAT 88–95
[2022-10-31 04:19] LABS: Basophils % 0.6 %; Eosinophils % 0.6 %; Hematocrit 34.8 % (37.0-47.0); Hemoglobin 11.2 g/dL (11.5-15.3); Lymphocytes # 0.5 10^3/uL (0.8-4.8); Mean Corpuscular HGB Conc 32.2 g/dL (30.0-36.0); Mean Corpuscular Hemoglobin 27.7 pg (28.0-34.0); Mean Corpuscular Volume 86.1 fl (81-99); Mean Platelet Volume 11.8 fL (7.4-10.4); Monocytes # 0.2 10^3/uL (0.2-0.9); Monocytes % 12.5 %; Neutrophils % 56.7 %; Nucleated Red Blood Cells % 0 %; Platelet Count 85 10^3/cmm (130-400); Red Blood Count 4.04 10^6/uL (4.1-5.3); Red Cell Distribution Width 13.7 % (12.1-15.1); White Blood Count 1.8 10^3/uL (4.0-10.0)
[2022-10-31 04:48] LABS: Anion Gap 15.6 (5-19); Blood Urea Nitrogen 31 mg/dL (8-23); C Reactive Protein 10.5 mg/L (0.0-4.9); Calcium 8.4 mg/dL (8.5-10.5); Carbon Dioxide 19 mmol/L (22-29); Chloride 107 mmol/L (98-107); Glomerular Filtration Rate 62.8 mL/min (90-130); Glucose 85 mg/dL (65-115); Magnesium 1.7 mg/dL (1.7-2.3); Osmolality Calculated 292 mOsm/kg (285-295); Potassium 3.6 mmol/L (3.5-5.1); Sodium 138 mmol/L (136-145)
[2022-10-31 05:01] LABS: Slide Review Slide Review Perform
[2022-10-31] MEDS: heparin 5,000 unit/mL INJ 1 mL 5000 UNIT SUBCUT ×2 (09:47→21:18)
[2022-10-31] MEDS: levothyroxine 75 mcg Tablet PO (09:48)
[2022-10-31] MEDS: sennosides-docusate Tablet 1 TAB PO (09:48)
[2022-10-31] MEDS: gabapentin 100 mg Capsule PO ×3 (09:48→21:18)
[2022-10-31] MEDS: metoprolol succinate ER (24 HR) 25 mg Tablet PO (09:48)
[2022-10-31] MEDS: oseltamivir phosphate 75 mg Capsule PO ×2 (09:48→17:38)
[2022-10-31] MEDS: verapamil ER 240 mg Tablet 120 MG PO (09:55)
[2022-10-31 09:57] LABS: LAB Peripheral Smear Sent for Review
--- NOTE | 2022-10-31 12:01 | PM.PN ---
Subjective Subjective: Seen this morning. Patient states that she is starting to feel better already. Her diarrhea also resolved yesterday. She says she uses a walker to get around and that is her safety net however she can also walk without it at times if needed. She says she was significantly weak and that is the main reason she came to the hospital. Denies any lightheadedness or dizziness. Denies having low cell counts. Vitals/I&O/Wt Last Vital Signs Temp 98.6 F 10/31/22 11:36 Pulse 84 10/31/22 11:36 Resp 16 10/31/22 11:36 BP 97/58 10/31/22 11:36 Pulse Ox 92 10/31/22 11:36 O2 Del Method 10/31/22 11:36 10/30/22 10/31/22 10/31/22 22:59 06:59 14:59 Intake Total 2049 120 / 120 Balance 2049 120 / 120 Weight last 48 hrs Weight 68.039 kg Physical Exam Narrative: Alert oriented x3. Appears slightly dehydrated this morning. Requiring 2 L nasal cannula at this time. Saturating 87% on room air. Does not feel short of breath. Very pleasant cooperative Sitting in her bed Saturating well on room air Hemodynamically stable A. fib RVR Abdomen soft No audible stridor or wheezing No focal neuro exam Pleasant cooperative Appropriate mood and affect Lower extremity no edema Sepsis: Is patient septic: Yes Focused sepsis exam performed: Yes Focused sepsis exam: Catheter refill normal No encephalopathy No skin mottling Awake and alert Date exam was performed: 10/30/22 Time exam was performed: 20:59 Data 10/31/22 04:06 10/31/22 04:06 Micro: Microbiology 10/30/22 21:55 MRSA Culture - Final Nose 10/30/22 14:54 Blood Culture - Preliminary Blood SPECIMEN COLLECTED 10/30/22 14:50 Blood Culture - Preliminary Blood SPECIMEN COLLECTED A&P Assessment and plan (1) RSV infection: (2) Flu: (3) BERKLEY (acute kidney injury): (4) Weakness: (5) Pancytopenia: Plan Sepsis related to UTI Upper respiratory tract infection for influenza A and RSV Criteria met with tachycardia, tachypnea, leukopenia I have requested a lactic acid she had received 2 L of bolus in the ER, received antibiotics as well Repeating blood culture, urine culture Sputum analysis DuoNeb every 4 as needed Start IV fluid hydration overnight BERKLEY related to dehydration A. fib RVR continue metoprolol and verapamil Patient does not take any anticoagulating agent, [id number] is 1 History of rheumatoid and osteoarthritis, uses walker because of right knee pain History of hypothyroidism: Continue levothyroxine, we might have to increase the dose of levothyroxine to 100 mcg Full code Cardiac diet Diet, patient is not complaining of dysuria, no active symptoms of UTI however abnormal UA cystitis present on CT abdomen pelvis start ceftriaxone Continue above management at this time. Continue IV fluids. Patient's platelet 85,000, hemoglobin 11.2, WBC 1.8. Patient is on Rinvoq and hydroxychloroquine at home. I will repeat a CBC at this time. Patient on Tamiflu as well. We will send for peripheral smear. After repeat CBC returns we will potentially discuss with hematology for further input. Note patient is positive for influenza A and RSV. 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
[2022-10-31] MEDS: sodium chloride 0.9% 1,000 ML 75 ML IV (12:02)
--- NOTE | 2022-10-31 12:22 | PC.CHAP ---
Pastoral Care Encounter/Spiritual Assessment Type of Contact [] Declined notching press operator visit [] Patient/Family/Request visit [] Outpatient visit [] Follow-up visit [] Physician referral [] Code/Alert [x] Routine visit [] Staff referral [] Actively dying [] Patient sleeping [] Family support [] [] Out of room [] Palliative care [] [] Receiving care in room [] Pre-surgical visit [] Trauma [] Long length of stay [] ICU visit [] Other: isolation Relational/Emotional Strength [] Patient feels connected with others/family/visitors/staff [] Distress [] Loneliness/isolation [] Abandonment Spirituality of Patient [] Person of Yvonne [] Attends Buddhism of their Yvonne [] Believes in Prayer [] Reads Bible or Mosque materials [] There are Spiritual issues to be addressed Able Seaman Interventions [] Prayer [] Active listening [] Non-anxious presence [] Spiritual/emotional support [] Crisis/trauma care [] Spiritual counseling [] Bereavement support [] Provided bereavement packet [] Provided Bible/devotional materials [] Provided toy/stuffed animal, coloring book to patient or family member [] Provided Communion [] Anointing/[place] [] Salvation [] Completed spiritual assessment [] Other: Impact on Illness or Injury [] Angry [] Fearful [] Anxious [] Often cries [] Exhaustion [] Unable to work [] Unable to attend yazidism [] Unable to walk/stand [] Unable to read [] Unable to drive [] Unable to eat/drink [] Unable to sleep [] Unable to be with family [] Patient intubated [] Other: Summary Time spent with patient
[2022-10-31 15:23] LABS: Basophils % 0.5 %; Eosinophils # 0.1 10^3/uL (0.0-0.8); Eosinophils % 2.3 %; Hematocrit 34.9 % (37.0-47.0); Hemoglobin 11.6 g/dL (11.5-15.3); Lymphocytes # 0.8 10^3/uL (0.8-4.8); Lymphocytes % 35.2 %; Mean Corpuscular HGB Conc 33.2 g/dL (30.0-36.0); Mean Corpuscular Hemoglobin 28.4 pg (28.0-34.0); Mean Corpuscular Volume 85.5 fl (81-99); Mean Platelet Volume 12.3 fL (7.4-10.4); Monocytes # 0.3 10^3/uL (0.2-0.9); Monocytes % 11.9 %; Neutrophils % 50.1 %; Nucleated Red Blood Cells % 0 %; Platelet Count 92 10^3/cmm (130-400); Red Blood Count 4.08 10^6/uL (4.1-5.3); Red Cell Distribution Width 13.8 % (12.1-15.1); White Blood Count 2.2 10^3/uL (4.0-10.0)
[2022-10-31] MEDS: cefTRIAXone 1,000 MG in sodium chloride 0.9% (plus) 50 ML 100 MG IV (21:18)
[2022-11-01] VITALS (9 sets, daily range): BP systolic 92–110; BP diastolic 61–72; PULSE 67–86; RESP 15–18; TEMP 36.5–36.8; O2SAT 91–95
[2022-11-01] MEDS: sodium chloride 0.9% 1,000 ML 75 ML IV ×2 (01:37→14:53)
[2022-11-01] MEDS: levothyroxine 75 mcg Tablet PO (09:56)
[2022-11-01] MEDS: oseltamivir phosphate 75 mg Capsule PO ×2 (09:56→16:54)
[2022-11-01] MEDS: gabapentin 100 mg Capsule PO ×3 (09:56→21:05)
[2022-11-01] MEDS: sennosides-docusate Tablet 1 TAB PO (09:56)
[2022-11-01] MEDS: heparin 5,000 unit/mL INJ 1 mL 5000 UNIT SUBCUT ×2 (09:56→21:08)
[2022-11-01] MEDS: metoprolol succinate ER (24 HR) 25 mg Tablet PO (09:56)
--- NOTE | 2022-11-01 12:50 | P.PN_ITS ---
Subjective Subjective: Seen this morning. No acute events overnight. Patient on 2 L of oxygen nasal cannula. Her family member confirmed on the phone that patient is supposed to be on 4 L at baseline at home and on 5 L at exertion however she does not use oxygen. She has a tank at home. She denies any shortness of breath, abdominal pain. She does states she has chronic UTIs. Patient also states she is not on verapamil at home and therefore has declined to take it this morning. She is starting to feel little bit better. White cell count 2.2, platelets 92,000. Patient on Tamiflu at this time. Vitals/I&O/Wt Last Vital Signs Temp 97.7 F 11/01/22 12:00 Pulse 67 11/01/22 12:00 Resp 15 11/01/22 12:00 BP 106/62 11/01/22 12:00 Pulse Ox 93 11/01/22 12:00 O2 Del Method 11/01/22 12:00 O2 Flow Rate 1.5 11/01/22 12:00 10/31/22 11/01/22 11/01/22 22:59 06:59 14:59 Intake Total 410 / 1890 1000 / 2890 Balance 410 / 1890 1000 / 2890 Weight last 48 hrs Weight 68.039 kg Physical Exam Narrative: Alert oriented x3. Appears slightly dehydrated this morning. On 2 L nasal cannula. Very pleasant cooperative Sitting in her bed Saturating well on room air Hemodynamically stable Abdomen soft No audible stridor or wheezing No focal neuro exam Pleasant cooperative Appropriate mood and affect Lower extremity no edema Sepsis: Is patient septic: Yes Focused sepsis exam performed: Yes Focused sepsis exam: Catheter refill normal No encephalopathy No skin mottling Awake and alert Date exam was performed: 10/30/22 Time exam was performed: 20:59 Data 10/31/22 15:08 10/31/22 04:06 Micro: Microbiology 10/30/22 19:05 Urine Culture - Preliminary Urine,Clean Catch Gram Negative Rods 10/30/22 14:54 Blood Culture - Preliminary Blood NEGATIVE TO DATE 10/30/22 14:50 Blood Culture - Preliminary Blood NEGATIVE TO DATE 10/30/22 21:55 MRSA Culture - Final Nose A&P Assessment and plan (1) RSV infection: (2) Flu: (3) BERKLEY (acute kidney injury): (4) Weakness: (5) Pancytopenia: Plan Sepsis related to UTI Upper respiratory tract infection for influenza A and RSV Criteria met with tachycardia, tachypnea, leukopenia I have requested a lactic acid she had received 2 L of bolus in the ER, received antibiotics as well Repeating blood culture, urine culture Sputum analysis DuoNeb every 4 as needed Start IV fluid hydration overnight BERKLEY related to dehydration A. fib RVR continue metoprolol and verapamil Patient does not take any anticoagulating agent, [id number] is 1 History of rheumatoid and osteoarthritis, uses walker because of right knee pain History of hypothyroidism: Continue levothyroxine, we might have to increase the dose of levothyroxine to 100 mcg Full code Cardiac diet Diet, patient is not complaining of dysuria, no active symptoms of UTI however abnormal UA cystitis present on CT abdomen pelvis start ceftriaxone Continue above management at this time. Continue IV fluids. Peripheral smear pending. Urine culture positive for negative. Speciation pending at this time. Sensitivity pending. Continue ceftriaxone. Note patient is positive for influenza A and RSV. Plan for discharge in a.m. when urine culture returns with follow-up with hematology as outpatient. 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
[2022-11-01] MEDS: cefTRIAXone 1,000 MG in sodium chloride 0.9% (plus) 50 ML 100 MG IV (21:05)
[2022-11-02] VITALS (8 sets, daily range): BP systolic 99–122; BP diastolic 63–76; PULSE 59–86; RESP 16–24; TEMP 36.4–36.9; O2SAT 92–95
[2022-11-02 03:33] LABS: Basophils % 0.5 %; Eosinophils # 0.1 10^3/uL (0.0-0.8); Eosinophils % 4.9 %; Hematocrit 33.5 % (37.0-47.0); Hemoglobin 10.8 g/dL (11.5-15.3); Lymphocytes # 0.9 10^3/uL (0.8-4.8); Lymphocytes % 44.4 %; Mean Corpuscular HGB Conc 32.2 g/dL (30.0-36.0); Mean Corpuscular Hemoglobin 27.9 pg (28.0-34.0); Mean Corpuscular Volume 86.6 fl (81-99); Mean Platelet Volume 12.6 fL (7.4-10.4); Monocytes # 0.2 10^3/uL (0.2-0.9); Monocytes % 11.2 %; Neutrophils % 38.5 %; Nucleated Red Blood Cells % 0 %; Platelet Count 67 10^3/cmm (130-400); Red Blood Count 3.87 10^6/uL (4.1-5.3); Red Cell Distribution Width 13.5 % (12.1-15.1); White Blood Count 2.1 10^3/uL (4.0-10.0)
[2022-11-02] MEDS: sodium chloride 0.9% 1,000 ML 75 ML IV ×2 (04:56→18:11)
[2022-11-02 05:26] LABS: Neutrophils # 0.79 10^3/uL (1.8-7.7)
[2022-11-02] MEDS: levothyroxine 75 mcg Tablet PO (10:56)
[2022-11-02] MEDS: metoprolol succinate ER (24 HR) 25 mg Tablet PO (10:56)
[2022-11-02] MEDS: gabapentin 100 mg Capsule PO ×3 (10:57→20:08)
[2022-11-02] MEDS: oseltamivir phosphate 75 mg Capsule PO ×2 (10:57→18:11)
--- NOTE | 2022-11-02 13:45 | P.PN_ITS ---
Subjective Subjective: seen this am pt says she feels better urine culture still pending she is on 2L NC Platelet 67, wbc 2.2, neutrophil count low. on rinvoq at home seesn rheumatology in [place] Vitals/I&O/Wt Last Vital Signs Temp 97.5 F L 11/02/22 11:39 Pulse 81 11/02/22 11:39 Resp 17 11/02/22 11:39 BP 106/64 11/02/22 11:39 Pulse Ox 95 11/02/22 11:39 O2 Del Method 11/02/22 07:45 O2 Flow Rate 2 11/02/22 07:31 11/01/22 11/02/22 11/02/22 22:59 06:59 14:59 Intake Total 290 / 1285 1240 / 2525 120 / 120 Balance 290 / 1285 1240 / 2525 120 / 120 Physical Exam Narrative: Alert oriented x3. Sitting up in recliner today. On 2 L nasal cannula. Very pleasant cooperative Sitting in her bed Saturating well on room air Hemodynamically stable Abdomen soft No audible stridor or wheezing No focal neuro exam Pleasant cooperative Appropriate mood and affect Lower extremity no edema Sepsis: Is patient septic: No Focused sepsis exam performed: No Data 11/02/22 02:55 10/31/22 04:06 Micro: Microbiology 10/30/22 19:05 Urine Culture - Final Urine,Clean Catch Escherichia coli A&P Assessment and plan (1) RSV infection: (2) Flu: (3) BERKLEY (acute kidney injury): (4) Weakness: (5) Pancytopenia: Plan Sepsis related to UTI Upper respiratory tract infection for influenza A and RSV Criteria met with tachycardia, tachypnea, leukopenia I have requested a lactic acid she had received 2 L of bolus in the ER, received antibiotics as well Repeating blood culture, urine culture Sputum analysis DuoNeb every 4 as needed Start IV fluid hydration overnight BERKLEY related to dehydration A. fib RVR continue metoprolol and verapamil Patient does not take any anticoagulating agent, [id number] is 1 History of rheumatoid and osteoarthritis, uses walker because of right knee pain History of hypothyroidism: Continue levothyroxine, we might have to increase the dose of levothyroxine to 100 mcg Full code Cardiac diet Diet, patient is not complaining of dysuria, no active symptoms of UTI however abnormal UA cystitis present on CT abdomen pelvis Continue ceftriaxone and transition to oral at vt. Continue above management at this time. Continue IV fluids. Peripheral smear pending. Urine culture positive for gram negative rods. S peciation pending at this time. Sensitivity pending. Continue ceftriaxone. Note patient is positive for influenza A and RSV. Pancytopenia most likely secondary to influenza viral infection. This is acute and she has no history of it. Check iron, esr, crp, lft, retic count, ldh, vitamin b12, haptoglobin, folate levels, hepatitis profile, i do expect her counts to improve as viral infection resolves follow-up with hematology as outpatient. Repeat labs at discharge Attestations Medical Necessity Statement*: continue to monitor pt in hospital. She has worsening pancytopenia. 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
[2022-11-02] MEDS: cefTRIAXone 1,000 MG in sodium chloride 0.9% (plus) 50 ML 100 MG IV (20:08)
[2022-11-02 21:38] LABS: Reticulocyte % 0.6 % (0.5-2.0)
[2022-11-02 21:50] LABS: Erythrocyte Sedimentation Rate 12 mm/hr (0-15)
[2022-11-02 21:52] LABS: C Reactive Protein 11.2 mg/L (0.0-4.9); Lactate Dehydrogenase 212 U/L (135-214)
[2022-11-03] VITALS: BP 123/66; PULSE 84; RESP 22; TEMP 36.7; O2SAT 94
[2022-11-03 02:04] LABS: Basophils % 0.3 %; Eosinophils # 0.1 10^3/uL (0.0-0.8); Eosinophils % 3.1 %; Hematocrit 35.5 % (37.0-47.0); Hemoglobin 11.3 g/dL (11.5-15.3); Lymphocytes # 0.9 10^3/uL (0.8-4.8); Lymphocytes % 24.4 %; Mean Corpuscular HGB Conc 31.8 g/dL (30.0-36.0); Mean Corpuscular Hemoglobin 27.2 pg (28.0-34.0); Mean Corpuscular Volume 85.5 fl (81-99); Mean Platelet Volume 12.3 fL (7.4-10.4); Monocytes # 0.2 10^3/uL (0.2-0.9); Monocytes % 6.7 %; Neutrophils # 2.32 10^3/uL (1.8-7.7); Neutrophils % 64.9 %; Nucleated Red Blood Cells % 0 %; Platelet Count 87 10^3/cmm (130-400); Red Blood Count 4.15 10^6/uL (4.1-5.3); Red Cell Distribution Width 13.4 % (12.1-15.1); White Blood Count 3.6 10^3/uL (4.0-10.0)
[2022-11-03 02:12] LABS: Iron 26 ug/dL (37-145); Percent Saturation 17.9 % (20-50); Total Iron Binding Capacity 145 mcg/dl; Unsaturated Iron Binding 119 ug/dL (112-347); Vitamin B12 811 pg/mL (232-1245)
[2022-11-03 02:28] LABS: Blood Urea Nitrogen 6 mg/dL (8-23); Calcium 8.4 mg/dL (8.5-10.5); Carbon Dioxide 24 mmol/L (22-29); Chloride 110 mmol/L (98-107); Glucose 100 mg/dL (65-115); Osmolality Calculated 292 mOsm/kg (285-295); Sodium 142 mmol/L (136-145)
[2022-11-03 04:00] VITALS: BP 113/71; PULSE 68; RESP 19; TEMP 36.6; O2SAT 92
[2022-11-03 04:08] LABS: Hepatitis A Antibody IgM Non-Reactive (Nonreactive); Hepatitis B Core AB, Total Non-Reactive (Nonreactive); Hepatitis B Surface AB 3.5 (11.5-1000); Hepatitis B Surface Antigen Non-Reactive (Nonreactive); Hepatitis C Virus Antibody Non-Reactive (Nonreactive)
[2022-11-03 07:30] VITALS: PULSE 85; RESP 16; O2SAT 94
[2022-11-03 08:00] VITALS: BP 122/67; PULSE 76; RESP 18; TEMP 36.6; O2SAT 92
[2022-11-03] MEDS: gabapentin 100 mg Capsule PO (09:54)
[2022-11-03] MEDS: levothyroxine 75 mcg Tablet PO (09:54)
[2022-11-03] MEDS: metoprolol succinate ER (24 HR) 25 mg Tablet PO (09:55)
[2022-11-03] MEDS: oseltamivir phosphate 75 mg Capsule PO (09:55)
[2022-11-03 12:00] VITALS: BP 123/81; PULSE 80; RESP 16; TEMP 36.7; O2SAT 94
--- NOTE | 2022-11-03 12:01 | P.DS_ITS ---
Discharge Providers Date of Admission: 10/30/22 20:34 Date of Discharge: November 03, 2022 Attending Provider at Admission: Elma Hadley MD Attending Provider at Discharge: Marian Conley MD Diagnoses at Discharge Discharge Diagnosis (1) RSV infection: Status: Acute (2) Flu: Status: Acute (3) BERKLEY (acute kidney injury): Status: Acute (4) Weakness: Status: Acute (5) Pancytopenia: Status: Acute Reason for Visit Reason for Visit: fatigue,cant walk Brief History: Inez Riley is a 67 year old female who presented to the hospital with chief complaint of diarrhea and generalized fatigue.? Patient's symptoms started roughly 6 days ago, she takes care of her grand children, she has been experiencing fatigue, lethargy and fatigue for quite some days today she started having worsening of diarrhea that prompted her visit to the ER.? Patient has not experienced any fever, chest pain, shortness of breath.? Her appetite is very poor she has not eaten well in last few days. 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 fib, she does not take any anticoagulating agent She has received 2 L of IV bolus I will get lactic acid, she has received antibiotics Hospital Course Hospital Course Patient presented with sepsis secondary to UTI. She was also positive for influenza A and RSV. Patient had BERKLEY as well due to dehydration which resolved after IV fluids. Patient did have atrial fibrillation for which she was on metoprolol and verapamil at home. However she said that she was not on verapamil so that was removed off of her medication list because she also refused to during hospital stay. She is not on any anticoagulating agent [id number] is 1. She does have a history of rheumatoid arthritis and osteoarthritis because of right knee pain. On levothyroxine for hypothyroidism. Patient's urine culture did grow gram-negative rods pansensitive. She was on ceftriaxone during hospital stay and transition to cefuroxime at discharge. Patient also developed pancytopenia during hospital stay which was most likely secondary to influenza A infection. Counts did start to improve on day of discharge. I did give her a follow-up appointment with hematology for consultation. Patient will be discharged home in stable condition. Lastly she is on oxygen at home 4 L at rest and 5 L on exertion however her daughter said that she was not wearing it. During hospital stay she was requiring 2 L nasal cannula for which she was discharged on. She was counseled that if she worsens or develops any new symptoms she is to come back to the hospital. Patient will be given repeat labs to do outpatient. Physical Exam Narrative: Alert oriented x3. Sitting up in recliner today. Laying in bed at this time. 2L Nasal cannula. Sitting in her bed Saturating well on room air Hemodynamically stable Abdomen soft No audible stridor or wheezing No focal neuro exam Pleasant cooperative Appropriate mood and affect Lower extremity no edema Sepsis: Is patient septic: No Focused sepsis exam performed: No Discharge Data Studies Completed and Pending Completed Studies During Hospitalization Category Date Time Status CT abdomen pelvis w con* [id number] Stat Cat Scan 10/30/22 15:[address] head wo con* [id number] Stat Cat Scan 10/30/22 15:42 Completed US abdomen complete* 13351 Routine Ultrasound 11/03/22 21:11 Completed Pending at discharge Category Date Time Status Blood Culture Stat Lab 10/30/22 14:54 Results Sputum Culture and Gram Stain Routine Lab 10/30/22 20:06 Uncollected Radiology Impressions Abdomen/Pelvis CT 10/30/22 15:42 IMPRESSION: 1. Cystitis. Similar findings were present on 03/23/2022. This may be chronic or recurrent. 2. Incidental findings above. Head CT 10/30/22 15:42 IMPRESSION: No acute intracranial abnormality demonstrated. Abdomen Ultrasound 11/03/22 21:11 IMPRESSION: 1. Quality of this examination is limited by body habitus. 2. Prior cholecystectomy. 3. Mildly dilated common bile duct is probably secondary to cholecystectomy. 4. Normal spleen. 5. No hydronephrosis. Laboratory Results WBC 3.6 10^3/uL (4.0-10.0) L 11/03/22 01:44 RBC 4.15 10^6/uL (4.1-5.3) 11/03/22 01:44 Hgb 11.3 g/dL (11.5-15.3) L 11/03/22 01:44 Hct 35.5 % (37.0-47.0) L 11/03/22 01:44 MCV 85.5 fl (81-99) 11/03/22 01:44 MCH 27.2 pg (28.0-34.0) L 11/03/22 01:44 MCHC 31.8 g/dL (30.0-36.0) 11/03/22 01:44 RDW 13.4 % (12.1-15.1) 11/03/22 01:44 Plt Count 87 10^3/cmm (130-400) L 11/03/22 01:44 MPV 12.3 fL (7.4-10.4) H 11/03/22 01:44 Neut % (Auto) 64.9 % 11/03/22 01:44 Lymph % (Auto) 24.4 % 11/03/22 01:44 [place] % (Auto) 6.7 % 11/03/22 01:44 Eos % (Auto) 3.1 % 11/03/22 01:44 Baso % (Auto) 0.3 % 11/03/22 01:44 Reticulocyte % (Auto) 0.6 % (0.5-2.0) 11/02/22 02:55 Neut # (Auto) 2.32 10^3/uL (1.8-7.7) 11/03/22 01:44 Lymph # (Auto) 0.9 10^3/uL (0.8-4.8) 11/03/22 01:44 [place] # (Auto) 0.2 10^3/uL (0.2-0.9) 11/03/22 01:44 Eos # (Auto) 0.1 10^3/uL (0.0-0.8) 11/03/22 01:44 Baso # (Auto) 0.0 10^3/uL (0.0-0.1) 11/03/22 01:44 Nucleated RBC % (auto) 0 % 11/03/22 01:44 Nucleated RBCs # 0.0 /100WBC 11/03/22 01:44 ESR 12 mm/hr (0-15) 11/02/22 02:55 Haptoglobin 217.0 mg/L (30-200) H 11/02/22 02:55 Sodium 142 mmol/L (136-145) 11/03/22 01:44 Potassium 3.0 mmol/L (3.5-5.1) L 11/03/22 01:44 Chloride 110 mmol/L (98-107) H 11/03/22 01:44 Carbon Dioxide 24 mmol/L (22-29) 11/03/22 01:44 Anion Gap 11.0 (5-19) 11/03/22 01:44 BUN 6 mg/dL (8-23) L 11/03/22 01:44 Creatinine 0.7 mg/dL (0.5-0.9) 11/03/22 01:44 GFR Calculation 84.0 mL/min (90-130) L 11/03/22 01:44 Glucose 100 mg/dL (65-115) 11/03/22 01:44 Calculated Osmolality 292 mOsm/kg (285-295) 11/03/22 01:44 Lactic Acid 1.6 mmol/L (0.5-2.2) 10/30/22 14:50 Calcium 8.4 mg/dL (8.5-10.5) L 11/03/22 01:44 Phosphorus 2.0 mg/dL (2.5-4.5) L 10/31/22 04:06 Magnesium 1.7 mg/dL (1.7-2.3) 10/31/22 04:06 Iron 26 ug/dL (37-145) L 11/02/22 02:55 TIBC 145 mcg/dl 11/02/22 02:55 % Saturation 17.9 % (20-50) L 11/02/22 02:55 Unsat Iron Binding 119 ug/dL (112-347) 11/02/22 02:55 Total Bilirubin 0.5 mg/dL (0.15-1.2) 10/30/22 14:50 AST 86 U/L (0-32) H 10/30/22 14:50 ALT 27 U/L (0-33) 10/30/22 14:50 Alkaline Phosphatase 75 U/L (35-105) 10/30/22 14:50 Lactate Dehydrogenase 212 U/L (135-214) 11/02/22 02:55 C-Reactive Protein 11.2 mg/L (0.0-4.9) H 11/02/22 02:55 Total Protein 8.4 g/dL (6.6-8.7) 10/30/22 14:50 Albumin 4.1 g/dL (3.5-5.2) 10/30/22 14:50 Globulin 4.3 g/dL (1.3-4.6) 10/30/22 14:50 Vitamin B12 811 pg/mL (232-1245) 11/02/22 02:55 Procalcitonin 0.33 ng/mL (0-0.5) 10/30/22 14:50 Procalcitonin 0.33 ng/mL (0-0.5) 10/30/22 14:50 TSH 10.46 uIU/mL (0.27-4.20) H 10/30/22 14:50 Free T4 1.20 ng/dL (0.82-1.77) 10/30/22 14:50 Urine Color Yellow (Yellow) 10/30/22 19:05 Urine Appearance Sl hazy (CLEAR) A 10/30/22 19: Urine pH 5 (5-7) 10/30/22 19:05 Ur Specific [place] 1.005 (1.005-1.030) 10/30/22 19:05 Urine Protein 1+ (Negative) H 10/30/22 19:05 Urine Glucose (UA) Norm (Normal) 10/30/22 19:05 Urine Ketones 2+ (Negative) H 10/30/22 19:05 Urine Blood 2+ (Negative) H 10/30/22 19:05 Urine Nitrate Negative (Negative) 10/30/22 19:05 Urine Bilirubin Neg (Negative) 10/30/22 19:05 Urine Urobilinogen Neg mg/dL (Negative) 10/30/22 19:05 Ur Leukocyte Esterase 1+ (Negative) H 10/30/22 19:05 Urine RBC 10-15 /hpf (0-2) H 10/30/22 19:05 Urine WBC 40-55 /hpf (0-5) H 10/30/22 19:05 Ur Squamous Epith Cells 0-4 /hpf (0-5) H 10/30/22 19:05 Amorphous Sediment Not Reportable 10/30/22 19:05 Urine Bacteria 2+ /hpf (NONE) H 10/30/22 19:05 Nasal Influ A H1 2008 PCR Detected (NOT DETECT) A 10/30/22 19: Coronavirus 229E (PCR) Not detected (NOT DETECT) 10/30/22 15:00 Hepatitis A IgM Ab Non-reactive (Nonreactive) 11/03/22 01:44 Hep Bs Antigen Non-reactive (Nonreactive) 11/03/22 01:44 Hep Bs Antibody 3.5 (11.5-1000) L 11/03/22 01:44 Hep B Core Total Ab Non-reactive (Nonreactive) 11/03/22 01:44 Hepatitis C Antibody Non-reactive (Nonreactive) 11/03/22 01:44 Influenza A (H1) PCR Not detected (NOT DETECT) 10/30/22 19:31 Influenza A (H3) PCR Not detected (NOT DETECT) 10/30/22 19:31 Influenza Type A (PCR) Detected (NOT DETECT) A 10/30/22 19:31 Influenza Type B (PCR) Not detected (NOT DETECT) 10/30/22 19:31 RSV Type A (PCR) Detected (NOT DETECT) A 10/30/22 19:31 RSV Type B (PCR) Not detected (NOT DETECT) 10/30/22 19:31 SARS-CoV-2 (PCR) Not detected (NOT DETECT) 10/30/22 15:00 Vitals Last Vital Signs Temp 97.9 F 11/03/22 08:00 Pulse 76 11/03/22 08:00 Resp 18 11/03/22 08:00 BP 122/67 11/03/22 08:00 Pulse Ox 92 11/03/22 08:00 O2 Del Method 11/03/22 07:30 O2 Flow Rate 1 11/03/22 07:30 Discharge Plan Discharge Patient Disposition: Home Condition: Stable Prescriptions: New oseltamivir 75 mg Capsule 75 mg PO BID 1 Days Qty: 2 0RF Continued levothyroxine 75 mcg tablet 75 mcg PO DAILY gabapentin 100 mg capsule 100 mg PO TID metoprolol succinate 25 mg tablet extended release 24 hr 25 mg PO DAILY hydroxychloroquine 200 mg tablet 400 mg PO DAILY albuterol sulfate 90 mcg/actuation HFA aerosol inhaler 2 puff INHALATION QID PRN (Reason: Shortness Of Breath) rosuvastatin 20 mg tablet 20 mg PO DAILY Myrbetriq 25 mg tablet extended release 24 hr 25 mg PO DAILY Rinvoq 15 mg tablet extended release 24 hr 15 mg PO DAILY Discontinued verapamil 120 mg capsule,ext rel. pellets 24 hr 120 mg PO DAILY Discharge Orders: Discharge Order (Routine); Ordered 11/03/22 Ordered By: Marian Conley Other Ambulatory Orders: Complete Blood Count w/Auto (Routine) Timeframe: 1 Week Location: Determined by Patient Ordered By: Marian Conley Complete Blood Count w/Auto (Routine) Timeframe: 3 Days Location: Determined by Patient Ordered By: Marian Conley Referrals: Victor Manuel Torres MD [Hospitalist] - 1 week (Please call Monday to schedule a follow up appointment. The clinic has closed early due to weather.) Discharge Diet: Usual diet Discharge Activity: Increase activity as tolerated and Oxygen as instructed Patient Instructions: Oseltamivir (By mouth), Respiratory Syncytial Virus (GEN), Influenza (DC) Activity Restrictions/Additional Instructions: Please use oxygen as directed Please have your labs checked as discussed when you were seen today and follow up with hematology and PCP outpatient. Please return to ER if you have any worsening symptoms or new symptoms develop as instructed to you when you were seen today. Discharge Attestations Time Spent in Discharge Care*: less than 30 min Quality Metrics Clinical Quality Measures [ No reported AMI, CVA or VTE this stay] Coding Level of Care Code Acute Chg FW DC note Diagnoses RSV infection B33.8 Flu J11.1 BERKLEY (acute kidney injury) N17.9 Weakness R53.1 Pancytopenia D61.818
[2022-11-03] MEDS: potassium chloride oral liq 20 mEq/15 mL UDC 40 MEQ PO (12:28)
--- NOTE | 2022-11-03 13:20 | PC.NURSE ---
3310 Discharge instructions given to patient and daughter both voiced understanding, personal belongings packed and with patient
--- NOTE | 2022-11-03 13:26 | PC.NURSE ---
1326 02 home delivery here
[2022-11-03 13:40] VITALS: BP 123/81; PULSE 80; RESP 16; TEMP 36.7; O2SAT 94
--- NOTE | 2022-11-03 21:11 | US_ITS ---
WS: [id number] Complete ABDOMINAL ULTRASOUND HISTORY: pancytopenia, evaluate spleen COMPARISON: CT 10/30/2022 Liver: 15.7 cm in length. Liver is normal size. The entire liver is poorly visualized due to body hab itus. Portions of the liver are obscured. No mass or bile duct dilatation. Portal Vein: Normal hepatopetal flow with monophasic waveform. Gallbladder: Prior cholecystectomy. Pancreas: Limited visualization due to body habitus. No abnormality seen. CBD: 1.0 cm. Right kidney: 10.9 cm x 4.1 cm x 3.7 cm. No mass, cortical thickening or hydronephrosis. Left kidney: 11.2 cm x 4.9 cm x 3.8 cm. Normal size kidney. Hypoechoic area superior pole was identi fied. This may be normal renal parenchyma as no cyst was identified on the recent CT. No obstruction. Spleen: Normal size and echogenicity. Abdominal aorta and IVC are within normal limits. No ascites. US/US abdomen complete* [id number] IMPRESSION: 1. Quality of this examination is limited by body habitus. 2. Prior cholecystectomy. 3. Mildly dilated common bile duct is probably secondary to cholecystectomy. 4. Normal spleen. 5. No hydronephrosis.
== END 2022-11-03 13:20 | disposition home or self-care (01) ==
LOC: ER 19:51 → MEDSURG 20:35
PROVIDERS: Admitting Provider Internal Medicine; Emergency Provider Emergency Medicine; Visit Provider Internal Medicine
DX: A41.9 Sepsis, unspecified organism (principal); N39.0 Urinary tract infection, site not specified; B33.8 Other specified viral diseases; J11.1 Influenza due to unidentified influenza virus with other respiratory manifestations; N17.9 Acute kidney failure, unspecified; R53.1 Weakness; D61.818 Other pancytopenia; R19.7 Diarrhea, unspecified; I48.91 Unspecified atrial fibrillation; M06.9 Rheumatoid arthritis, unspecified; M19.90 Unspecified osteoarthritis, unspecified site; Z99.81 Dependence on supplemental oxygen; E03.9 Hypothyroidism, unspecified; Z86.16 Personal history of COVID-19
CPT/HCPCS: 36415; 70450; 74177; 76700; 80048; 80053; 80503; 81001; 82607; 83010; 83540; 83550; 83605; 83615; 83735; 84100; 84145; 84439; 84443; 85025; 85045; 85651; 86140; 86705; 86706; 86709; 86803; 87040; 87077; 87086; 87186; 87340; 87631; 87635; 87641; 87801; 94664; 96361; 96365; 96372; 99285; G0378; J0696; J1644; J7030; Q9967

== ENCOUNTER 2023-03-28 21:30 | Emergency (ER) | payer MEDICARE, MEDICAID, SELFPAY ==
[2023-03-28 21:42] VITALS: BP 134/55; PULSE 113; RESP 18; TEMP 36.9; O2SAT 95; BMI 25.8
--- NOTE | 2023-03-28 21:49 | ECG_ITS ---
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 Measurements Intervals [place] Rate: 132 P: 23 CA: 138 QRS: -21 QRSD: 118 T: 91 QT: 291 QTc: 432 Interpretive Statements SINUS TACHYCARDIA BORDERLINE LEFT AXIS DEVIATION [QRS AXIS < -20] LEFT VENTRICULAR HYPERTROPHY AND ST-T CHANGE [VOLTAGE CRITERIA PLUS ST/T ABNORMALITY] No previous ECG available for comparison Electronically Signed On 03-29-2023 17:49:52 CDT by Harley Bucio M.D. [email or web address]
[2023-03-28 22:00] VITALS: BP 141/59; PULSE 114; RESP 16; O2SAT 97
--- NOTE | 2023-03-28 22:03 | W.ED.SOB ---
Documented by User: Ronni Wilkes DO 03/28/23 22:11 HPI - SOB/Dyspnea General: Chief Complaint: Shortness of Breath/Dyspnea Stated Complaint: sob Time Seen by Provider: 03/28/23 21:59 History of Present Illness: HPI Narrative: Patient presents to the ER by ambulance for shortness of breath, turning purple, shaking, and bradycardia. Patient's daughter said this episode lasted about 45 minutes. Patient's daughter called EMS and by the time EMS arrived there patient was feeling much better. Patient normally does not have any shortness of breath does not use oxygen and does not use any breathing treatments. Patient does states she had an irregular heartbeat but denies any chest pain. MD elicited complaint: shortness of breath Pertinent past history: asthma and congestive heart failure Onset (ago): day(s) (Earlier today) Timing: constant and now resolved Severity: moderate Exacerbating factors: nothing Relieving factors: nothing Known history of: COPD and congestive heart failure Associated symptoms: Reports palpitations; Deny abdominal pain, chest pain, extremity pain, fever(s), nausea or vomiting Treatment prior to arrival: oxygen Review of Systems General: Reports: 10 or more systems reviewed and unremarkable except in HPI and below Const: Denies: fever(s) or chills Eyes: Denies: change in vision or photophobia Card: Reports: palpitations and irregular heart rhythm; Denies: chest pain Resp: Reports: dyspnea; Denies: productive cough or non-productive cough GI: Denies: abdominal pain, nausea or vomiting : Denies: flank pain, difficulty voiding or dysuria Musc: Denies: neck pain, back pain or extremity pain Skin/Breast: Denies: rash or pruritus Neuro: Denies: headache(s), numbness in extremities or weakness in extremities Psych: Denies: anxiety or depression PFSH ED PFSH: Medical History Hypertension Osteoarthritis Rheumatoid arthritis Surgical History Hx of cholecystectomy Family History Denies family history of CAD (coronary artery disease) Social History Smoking and tobacco status: never smoked Alcohol intake: never Substance/Drug Use: never Physical Exam Const: COMMON NORMALS: no acute distress, average body habitus, patient oriented x3, no limitations, healthy appearing, alert and well nourished HENMT: COMMON NORMALS: normocephalic, atraumatic, hearing grossly normal bilaterally, external ears normal, Normal external nose present and moist oral mucous membranes HEAD & SCALP: normocephalic and atraumatic NOSE: Normal external nose present EXTERNAL EAR: Yes external ears normal Eye: COMMON NORMALS: Equal, round and reactive pupils present, EOMs intact bilaterally, conjunctivae normal and no scleral icterus CONJUNCTIVA: Yes conjunctivae normal PUPIL: Yes Equal, round and reactive pupils present Neck/C-Spine: COMMON NORMALS: full ROM, no lymphadenopathy, supple, no meningeal signs, no JVD and Thyroid normal THYROID: Thyroid normal Lymph: LYMPHATIC: no lymphadenopathy noted Chest: COMMONS NORMALS: normal inspection of the chest and normal palpation of entire chest wall Resp: COMMON NORMALS: normal respiratory effort, No retractions, No use of accessory muscles and clear to auscultation bilaterally AUSCULTATION: clear to auscultation bilaterally Cardio: COMMON NORMALS: no JVD, regular rhythm, S1 normal heart sound present, S2 normal heart sound present, No clicks present (Cardio) and No murmurs present (Cardio) RHYTHM: regular rhythm HEART SOUNDS: S1 normal heart sound present and S2 normal heart sound present GI: COMMON NORMALS: Normal to inspection, nondistended, normoactive bowel sounds present, Soft to palpation, non-tender, No hepatosplenomegaly present and no masses PALPATION: Yes Soft to palpation and Yes No hepatosplenomegaly present : COMMON NORMALS: Yes no CVA tenderness BLADDER/KIDNEY EXAM: Yes no CVA tenderness Back/Pelvis: COMMON NORMALS: no CVA tenderness Neuro: COMMON NORMALS: patient oriented x3 SENSORIUM/ORIENTATION: Yes alert MENINGEAL SIGNS: Yes no meningeal signs Course Vital Signs: Vital signs: Vital Signs Temperature 98.5 F 03/28/23 21:42 Pulse Rate 99 03/29/23 01:00 Respiratory Rate 22 H 03/29/23 00:19 Blood Pressure 130/61 03/29/23 01:00 Pulse Oximetry 93 03/29/23 01:00 Oxygen Delivery Me thod Room Air 03/29/23 01:00 MDM - SOB/Dyspnea Differential Diagnosis Unlikely acute exacerbation of chronic obstructive airways disease, congestive heart failure, community acquired pneumonia, asthma with exacerbation or pulmonary embolism Medical Records I reviewed the patient's medical records. Lab Data I reviewed the patient's lab results. 03/28/23 22:00 03/28/23 22:00 Labs/Radiology: Radiology Impressions Chest X-Ray 03/28/23 22:07 IMPRESSION: No acute findings. Chest CTA 03/28/23 22:36 IMPRESSION: 1. Negative for pulmonary embolus. 2. Emphysematous changes. 3. Bilateral dependent atelectasis versus infiltrate. COMMENTS: In the absence of a history or active diagnosis of lung cancer, it is recommended that this patient with emphysema be evaluated for enrollment in a low dose CT lung cancer screening program. Laboratory Results WBC 9.7 10^3/uL (4.0-10.0) 03/28/23 22:00 RBC 4.67 10^6/uL (4.1-5.3) 03/28/23 22:00 Hgb 12.7 g/dL (11.5-15.3) 03/28/23 22:00 Hct 39.4 % (37.0-47.0) 03/28/23 22:00 MCV 84.4 fl (81-99) 03/28/23 22:00 MCH 27.2 pg (28.0-34.0) L 03/28/23 22:00 MCHC 32.2 g/dL (30.0-36.0) 03/28/23 22:00 RDW 14.3 % (12.1-15.1) 03/28/23 22:00 Plt Count 158 10^3/cmm (130-400) 03/28/23 22:00 MPV 10.4 fL (7.4-10.4) 03/28/23 22:00 Neut % (Auto) 92.1 % 03/28/23 22:00 Lymph % (Auto) 2.8 % 03/28/23 22:00 [place] % (Auto) 4.1 % 03/28/23 22:00 Eos % (Auto) 0.5 % 03/28/23 22:00 Baso % (Auto) 0.3 % 03/28/23 22:00 Neut # (Auto) 8.91 10^3/uL (1.8-7.7) H 03/28/23 22:00 Lymph # (Auto) 0.3 10^3/uL (0.8-4.8) L 03/28/23 22:00 [place] # (Auto) 0.4 10^3/uL (0.2-0.9) 03/28/23 22:00 Eos # (Auto) 0.1 10^3/uL (0.0-0.8) 03/28/23 22:00 Baso # (Auto) 0.0 10^3/uL (0.0-0.1) 03/28/23 22:00 Nucleated RBC % (auto) 0 % 03/28/23 22:00 Nucleated RBCs # 0.0 /100WBC 03/28/23 22:00 D-Dimer 2.30 ug/mIFEU (0-0.59) H 03/28/23 22:00 Sodium 141 mmol/L (136-145) 03/28/23 22:00 Potassium 3.4 mmol/L (3.5-5.1) L 03/28/23 22:00 Chloride 107 mmol/L (98-107) 03/28/23 22:00 Carbon Dioxide 20 mmol/L (22-29) L 03/28/23 22:00 Anion Gap 17.4 (5-19) 03/28/23 22:00 BUN 23 mg/dL (8-23) 03/28/23 22:00 Creatinine 0.8 mg/dL (0.5-0.9) 03/28/23 22:00 GFR Calculation 71.8 mL/min (90-130) L 03/28/23 22:00 Glucose 141 mg/dL (65-115) H 03/28/23 22:00 Calculated Osmolality 298 mOsm/kg (285-295) H 03/28/23 22:00 Calcium 9.2 mg/dL (8.5-10.5) 03/28/23 22:00 Magnesium 1.6 mg/dL (1.7-2.3) L 03/28/23 22:00 Total Bilirubin 0.6 mg/dL (0.15-1.2) 03/28/23 22:00 AST 37 U/L (0-32) H 03/28/23 22:00 ALT 25 U/L (0-33) 03/28/23 22:00 Alkaline Phosphatase 102 U/L (35-105) 03/28/23 22:00 Troponin T Baseline 22 ng/L (0-10) H 03/28/23 22:00 Troponin T 120 Minute 20.19 ng/L (0-10) H 03/29/23 00:30 Delta Troponin T -1.81 ABS# (0-10) L 03/29/23 00:30 NT-Pro-B Natriuret Pep 838 pg/mL (0-125) H 03/28/23 22:00 Total Protein 7.0 g/dL (6.6-8.7) 03/28/23 22:00 Albumin 4.2 g/dL (3.5-5.2) 03/28/23 22:00 Globulin 2.8 g/dL (1.3-4.6) 03/28/23 22:00 TSH 3.31 uIU/mL (0.27-4.20) 03/28/23 22:00 Urine Color Yellow (Yellow) 03/29/23 00:03 Urine Appearance Clear (CLEAR) 03/29/23 00:03 Urine pH 5 (5-7) 03/29/23 00:03 Ur Specific Strong 1.010 (1.005-1.030) 03/29/23 00:03 Urine Protein Neg (Negative) 03/29/23 00:03 Urine Glucose (UA) Norm (Normal) 03/29/23 00:03 Urine Ketones Negative (Negative) 03/29/23 00:03 Urine Blood 3+ (Negative) H 03/29/23 00:03 Urine Nitrate Negative (Negative) 03/29/23 00:03 Urine Bilirubin Neg (Negative) 03/29/23 00:03 Urine Urobilinogen Norm mg/dL (Negative) 03/29/23 00:03 Ur Leukocyte Esterase Trace (Negative) H 03/29/23 00:03 Urine RBC 0-4 /hpf (0-2) H 03/29/23 00:03 Urine WBC 0-4 /hpf (0-5) H 03/29/23 00:03 Ur Squamous Epith Cells 5-10 /hpf (0-5) H 03/29/23 00:03 Amorphous Sediment Not Reportable 03/29/23 00:03 Urine Bacteria Trace /hpf (NONE) 03/29/23 00:03 SARS-CoV-2 Ag (Rapid) negative (Negative) 03/29/23 00:14 EKG Data EKG 1: I personally reviewed and interpreted this EKG as follows: EKG Interpretation Date: 03/28/23 EKG interpretation time: 21:49 Prior EKG tracings: not available for review Interpretation: EKG showed ventricular rate of 132 bpm, [place] interval 138, QRS duration 118, QTc of 369, sinus tach with left axis deviation, left ventricular hypertrophy, Discharge Plan Discharge Patient Disposition: Home Clinical Impression: Dyspnea Condition: Stable Prescriptions: No Action levothyroxine 75 mcg tablet 75 mcg PO DAILY gabapentin 100 mg capsule 100 mg PO TID metoprolol succinate 25 mg tablet extended release 24 hr 25 mg PO DAILY hydroxychloroquine 200 mg tablet 400 mg PO DAILY albuterol sulfate 90 mcg/actuation HFA aerosol inhaler 2 puff INHALATION QID PRN (Reason: Shortness Of Breath) rosuvastatin 20 mg tablet 20 mg PO DAILY Myrbetriq 25 mg tablet extended release 24 hr 25 mg PO DAILY Rinvoq 15 mg tablet extended release 24 hr 15 mg PO DAILY Discharge Orders: Discharge ED (Routine); Ordered 03/29/23 Ordered By: Lissa Tilley Discharge Diet: Advance as tolerated Discharge Activity: Resume usual activity Patient Instructions: Dyspnea (ED) Coding Level of Care Code 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 [employer] Fwd Documented by User: Lissa Tilley MD 03/29/23 01:22 HPI - SOB/Dyspnea General: Chief Complaint: Shortness of Breath/Dyspnea Stated Complaint: sob Time Seen by Provider: 03/28/23 21:59 PFSH ED PFSH: Medical History Hypertension Osteoarthritis Rheumatoid arthritis Surgical History Hx of cholecystectomy Family History Denies family history of CAD (coronary artery disease) Social History Smoking and tobacco status: never smoked Alcohol intake: never Substance/Drug Use: never Course Vital Signs: Vital signs: Vital Signs Temperature 98.5 F 03/28/23 21:42 Pulse Rate 99 03/29/23 01:00 Respiratory Rate 22 H 03/29/23 00:19 Blood Pressure 130/61 03/29/23 01:00 Pulse Oximetry 93 03/29/23 01:00 Oxygen Delivery Me thod Room Air 03/29/23 01:00 MDM - SOB/Dyspnea Medical Decision Making Patient presents for an episode of dyspnea and she states shaking she has been well-appearing here her pulse ox has been 96% here on room air she has had some tachycardia with PVCs troponins here are normal CT showed atelectasis she has had no cough or fever no signs of pneumonia spoke to her at length did offer her admission for this event states she feels much improved like to go home she is to follow-up with PCP in 2 to 4 days return if worsening she understands agrees to plan. Lab Data 03/28/23 22:00 03/28/23 22:00 Labs/Radiology: Radiology Impressions Chest X-Ray 03/28/23 22:07 IMPRESSION: No acute findings. Chest CTA 03/28/23 22:36 IMPRESSION: 1. Negative for pulmonary embolus. 2. Emphysematous changes. 3. Bilateral dependent atelectasis versus infiltrate. COMMENTS: In the absence of a history or active diagnosis of lung cancer, it is recommended that this patient with emphysema be evaluated for enrollment in a low dose CT lung cancer screening program. Laboratory Results WBC 9.7 10^3/uL (4.0-10.0) 03/28/23 22:00 RBC 4.67 10^6/uL (4.1-5.3) 03/28/23 22:00 Hgb 12.7 g/dL (11.5-15.3) 03/28/23 22:00 Hct 39.4 % (37.0-47.0) 03/28/23 22:00 MCV 84.4 fl (81-99) 03/28/23 22:00 MCH 27.2 pg (28.0-34.0) L 03/28/23 22:00 MCHC 32.2 g/dL (30.0-36.0) 03/28/23 22:00 RDW 14.3 % (12.1-15.1) 03/28/23 22:00 Plt Count 158 10^3/cmm (130-400) 03/28/23 22:00 MPV 10.4 fL (7.4-10.4) 03/28/23 22:00 Neut % (Auto) 92.1 % 03/28/23 22:00 Lymph % (Auto) 2.8 % 03/28/23 22:00 [place] % (Auto) 4.1 % 03/28/23 22:00 Eos % (Auto) 0.5 % 03/28/23 22:00 Baso % (Auto) 0.3 % 03/28/23 22:00 Neut # (Auto) 8.91 10^3/uL (1.8-7.7) H 03/28/23 22:00 Lymph # (Auto) 0.3 10^3/uL (0.8-4.8) L 03/28/23 22:00 [place] # (Auto) 0.4 10^3/uL (0.2-0.9) 03/28/23 22:00 Eos # (Auto) 0.1 10^3/uL (0.0-0.8) 03/28/23 22:00 Baso # (Auto) 0.0 10^3/uL (0.0-0.1) 03/28/23 22:00 Nucleated RBC % (auto) 0 % 03/28/23 22:00 Nucleated RBCs # 0.0 /100WBC 03/28/23 22:00 D-Dimer 2.30 ug/mIFEU (0-0.59) H 03/28/23 22:00 Sodium 141 mmol/L (136-145) 03/28/23 22:00 Potassium 3.4 mmol/L (3.5-5.1) L 03/28/23 22:00 Chloride 107 mmol/L (98-107) 03/28/23 22:00 Carbon Dioxide 20 mmol/L (22-29) L 03/28/23 22:00 Anion Gap 17.4 (5-19) 05/16/23 22:00 BUN 23 mg/dL (8-23) 03/28/23 22:00 Creatinine 0.8 mg/dL (0.5-0.9) 03/28/23 22:00 GFR Calculation 71.8 mL/min (90-130) L 03/28/23 22:00 Glucose 141 mg/dL (65-115) H 03/28/23 22:00 Calculated Osmolality 298 mOsm/kg (285-295) H 03/28/23 22:00 Calcium 9.2 mg/dL (8.5-10.5) 03/28/23 22:00 Magnesium 1.6 mg/dL (1.7-2.3) L 03/28/23 22:00 Total Bilirubin 0.6 mg/dL (0.15-1.2) 03/28/23 22:00 AST 37 U/L (0-32) H 03/28/23 22:00 ALT 25 U/L (0-33) 03/28/23 22:00 Alkaline Phosphatase 102 U/L (35-105) 03/28/23 22:00 Troponin T Baseline 22 ng/L (0-10) H 03/28/23 22:00 Troponin T 120 Minute 20.19 ng/L (0-10) H 03/29/23 00:30 Delta Troponin T -1.81 ABS# (0-10) L 03/29/23 00:30 NT-Pro-B Natriuret Pep 838 pg/mL (0-125) H 03/28/23 22:00 Total Protein 7.0 g/dL (6.6-8.7) 03/28/23 22:00 Albumin 4.2 g/dL (3.5-5.2) 03/28/23 22:00 Globulin 2.8 g/dL (1.3-4.6) 03/28/23 22:00 TSH 3.31 uIU/mL (0.27-4.20) 03/28/23 22:00 Urine Color Yellow (Yellow) 03/29/23 00:03 Urine Appearance Clear (CLEAR) 03/29/23 00:03 Urine pH 5 (5-7) 03/29/23 00:03 Ur Specific Strong 1.010 (1.005-1.030) 03/29/23 00:03 Urine Protein Neg (Negative) 03/29/23 00:03 Urine Glucose (UA) Norm (Normal) 03/29/23 00:03 Urine Ketones Negative (Negative) 03/29/23 00:03 Urine Blood 3+ (Negative) H 03/29/23 00:03 Urine Nitrate Negative (Negative) 03/29/23 00:03 Urine Bilirubin Neg (Negative) 03/29/23 00:03 Urine Urobilinogen Norm mg/dL (Negative) 03/29/23 00:03 Ur Leukocyte Esterase Trace (Negative) H 03/29/23 00:03 Urine RBC 0-4 /hpf (0-2) H 03/29/23 00:03 Urine WBC 0-4 /hpf (0-5) H 03/29/23 00:03 Ur Squamous Epith Cells 5-10 /hpf (0-5) H 03/29/23 00:03 Amorphous Sediment Not Reportable 03/29/23 00:03 Urine Bacteria Trace /hpf (NONE) 03/29/23 00:03 SARS-CoV-2 Ag (Rapid) negative (Negative) 03/29/23 00:14 Discharge Plan Discharge Patient Disposition: Home Clinical Impression: Dyspnea Condition: Stable Prescriptions: No Action levothyroxine 75 mcg tablet 75 mcg PO DAILY gabapentin 100 mg capsule 100 mg PO TID metoprolol succinate 25 mg tablet extended release 24 hr 25 mg PO DAILY hydroxychloroquine 200 mg tablet 400 mg PO DAILY albuterol sulfate 90 mcg/actuation HFA aerosol inhaler 2 puff INHALATION QID PRN (Reason: Shortness Of Breath) rosuvastatin 20 mg tablet 20 mg PO DAILY Myrbetriq 25 mg tablet extended release 24 hr 25 mg PO DAILY Rinvoq 15 mg tablet extended release 24 hr 15 mg PO DAILY Discharge Orders: Discharge ED (Routine); Ordered 03/29/23 Ordered By: Lissa Tilley Discharge Diet: Advance as tolerated Discharge Activity: Resume usual activity Patient Instructions: Dyspnea (ED) Coding Level of Care Code 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 Linda Garcia
--- NOTE | 2023-03-28 22:07 | XRR_ITS ---
PROCEDURE INFORMATION: Exam: XR Chest Exam date and time: 03/28/2023 10:12 PM Age: 68 years old Clinical indication: Shortness of breath; Patient HX: C/O SOB. Tachycardic on monitor. ; Additional info: Tachycardia TECHNIQUE: Imaging protocol: Radiologic exam of the chest. Views: 1 view. COMPARISON: CT abdomen pelvis w con* [id number] 10/30/2022 4:52 PM FINDINGS: Lungs: Unremarkable. No consolidation. Pleural spaces: Unremarkable. No pleural effusion. No pneumothorax. Heart/Mediastinum: Unremarkable. No cardiomegaly. Bones/joints: Unremarkable. XR/XR chest 1V portable [id number] IMPRESSION: No acute findings.
[2023-03-28 22:15] LABS: Basophils % 0.3 %; Eosinophils # 0.1 10^3/uL (0.0-0.8); Eosinophils % 0.5 %; Hematocrit 39.4 % (37.0-47.0); Hemoglobin 12.7 g/dL (11.5-15.3); Lymphocytes # 0.3 10^3/uL (0.8-4.8); Lymphocytes % 2.8 %; Mean Corpuscular HGB Conc 32.2 g/dL (30.0-36.0); Mean Corpuscular Hemoglobin 27.2 pg (28.0-34.0); Mean Corpuscular Volume 84.4 fl (81-99); Mean Platelet Volume 10.4 fL (7.4-10.4); Monocytes # 0.4 10^3/uL (0.2-0.9); Monocytes % 4.1 %; Neutrophils # 8.91 10^3/uL (1.8-7.7); Neutrophils % 92.1 %; Nucleated Red Blood Cells % 0 %; Platelet Count 158 10^3/cmm (130-400); Red Blood Count 4.67 10^6/uL (4.1-5.3); Red Cell Distribution Width 14.3 % (12.1-15.1); White Blood Count 9.7 10^3/uL (4.0-10.0)
[2023-03-28 22:28] LABS: Troponin(5th) Baseline 22 ng/L (0-10)
[2023-03-28 22:31] VITALS: BP 121/75; PULSE 88; RESP 16; O2SAT 96
[2023-03-28 22:36] LABS: Alanine Aminotransferase 25 U/L (0-33); Albumin Level 4.2 g/dL (3.5-5.2); Alkaline Phosphatase 102 U/L (35-105); Anion Gap 17.4 (5-19); Aspartate Amino Transferase 37 U/L (0-32); Blood Urea Nitrogen 23 mg/dL (8-23); Calcium 9.2 mg/dL (8.5-10.5); Carbon Dioxide 20 mmol/L (22-29); Chloride 107 mmol/L (98-107); Globulin 2.8 g/dL (1.3-4.6); Glomerular Filtration Rate 71.8 mL/min (90-130); Glucose 141 mg/dL (65-115); Magnesium 1.6 mg/dL (1.7-2.3); NT Pro B Type Natriuretic Pept 838 pg/mL (0-125); Osmolality Calculated 298 mOsm/kg (285-295); Potassium 3.4 mmol/L (3.5-5.1); Sodium 141 mmol/L (136-145); Total Bilirubin 0.6 mg/dL (0.15-1.2)
--- NOTE | 2023-03-28 22:36 | CTR_ITS ---
PROCEDURE INFORMATION: Exam: CTA Chest With Contrast Exam date and time: 03/28/2023 11:02 PM Age: 68 years old Clinical indication: Shortness of breath; Additional info: Tachycardia, hypoxia, elevated d dimer TECHNIQUE: Imaging protocol: Computed tomographic angiography of the chest with contrast. 3D rendering (Not supervised by radiologist): MIP and/or 3D reconstructed images were created by the technologist. Radiation optimization: All CT scans at this facility use at least one of these dose optimization techniques: automated exposure control; mA and/or kV adjustment per patient size (includes targeted exams where dose is matched to clinical indication); or iterative reconstruction. Contrast material: OMNI 350; Contrast volume: 63 ml; Contrast route: INTRAVENOUS (IV); REPORTING DATA: Count of CT and Cardiac NM exams in prior 12 months: This patient has received 2 known CTs and 0 known cardiac nuclear medicine studies in the 12 months prior to the current study. COMPARISON: CR (CHEST, ) 03/28/2023 10:12 PM RADIATION DOSE METRICS: Total DLP (mGy-cm): 369.08 FINDINGS: Pulmonary arteries: Normal. No pulmonary emboli. Aorta: Unremarkable. No aortic aneurysm. No aortic dissection. Lungs: Emphysematous changes. Bilateral dependent atelectasis versus infiltrate. Pleural spaces: Unremarkable. No pneumothorax. No pleural effusion. Heart: Unremarkable. No cardiomegaly. No pericardial effusion. Lymph nodes: Unremarkable. No enlarged lymph nodes. Bones/joints: Unremarkable. No acute fracture. Soft tissues: Unremarkable. CT/CT angio chest PE protcl [id number] IMPRESSION: 1. Negative for pulmonary embolus. 2. Emphysematous changes. 3. Bilateral dependent atelectasis versus infiltrate. COMMENTS: In the absence of a history or active diagnosis of lung cancer, it is recommended that this patient with emphysema be evaluated for enrollment in a low dose CT lung cancer screening program.
[2023-03-28] MEDS: iohexol 350 mg/mL 500 mL Btl (per mL) IV (23:06)
[2023-03-28 23:29] VITALS: BP 127/74; PULSE 124; RESP 19; O2SAT 94
--- NOTE | 2023-03-29 00:07 | ECG_ITS ---
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 Measurements Intervals [place] Rate: 119 P: 0 OK: 0 QRS: -16 QRSD: 120 T: 57 QT: 323 QTc: 455 Interpretive Statements UNCERTAIN IRREGULAR RHYTHM LEFT VENTRICULAR HYPERTROPHY AND ST-T CHANGE [VOLTAGE CRITERIA PLUS ST/T ABNORMALITY] CRITICAL TEST RESULT Compared to ECG 03/28/2023 21:49:47 Sinus tachycardia no longer present ST (T wave) deviation still present Electronically Signed On 03-29-2023 18:00:19 CDT by Harley Bucio M.D. [email or web address]
[2023-03-29 00:16] LABS: Thyroid Stimulating Hormone 3.31 uIU/mL (0.27-4.20)
[2023-03-29 00:19] VITALS: BP 135/76; PULSE 116; RESP 22; O2SAT 93
[2023-03-29] MEDS: dilTIAZem 5 mg/mL SDV 5 mL 10 MG IVP (00:19)
[2023-03-29 00:30] LABS: Bilirubin Urine Neg (Negative); Blood Urine 3+ (Negative); Glucose Urine UA Norm (Normal); Ketones Urine Negative (Negative); Leukocyte Esterase Urine Trace (Negative); Nitrate Urine Negative (Negative); Protein Urine Neg (Negative); Urine Appearance Clear (CLEAR); Urine Color Yellow (Yellow); Urobilinogen Urine Norm (Negative); pH Urine 5 (5-7)
[2023-03-29 00:31] LABS: Add Urine Culture? No; Add Urine Microscopic? YES; Bacteria Urine TRACE /hpf; RBC Urine 0-4 /hpf (0-2); WBC Urine 0-4 /hpf (0-5)
[2023-03-29 00:38] LABS: SARS Covid-2 Antigen negative (Negative)
[2023-03-29 00:59] LABS: Troponin 5 2HR 20.19 ng/L (0-10)
[2023-03-29 01:00] VITALS: BP 130/61; PULSE 99; O2SAT 93
[2023-03-29 01:00] LABS: Troponin 5 2HR Delta -1.81 ABS# (0-10)
--- NOTE | 2023-04-12 13:20 | DCPLANNER ---
TCM called patient due to no primary care physician - no answer at this time.
== END 2023-03-29 01:12 | disposition home or self-care (01) ==
PROVIDERS: Emergency Medicine; Emergency Provider Emergency Medicine
DX: R06.00 Dyspnea, unspecified (principal); R00.0 Tachycardia, unspecified; I49.3 Ventricular premature depolarization
CPT/HCPCS: 71045; 71275; 80053; 81001; 83735; 83880; 84443; 84484; 85025; 85378; 87426; 93005; 96374; 99285; J3490; Q9967

== ENCOUNTER 2024-09-22 14:54 | Emergency (ER) | payer MEDICARE, MEDICAID, SELFPAY ==
[2024-09-22 14:57] VITALS: BP 123/75; PULSE 54; RESP 22; TEMP 37.1; O2SAT 97; BMI 25.3
--- NOTE | 2024-09-22 15:50 | ED_ITS ---
HPI - Female Genitourinary 2 General: Chief complaint: Urogenital-Female Stated complaint: can not pee, urinary pain and pressure Time Seen by Provider: 09/22/24 15:28 Source: patient Mode of arrival: ambulatory Limitations: no limitations History of Present Illness: Patient presents to the Emergency Department stating that she cannot pee and she thinks she has urinary tract infection. She states she has been having some vague symptoms of dysuria over the past couple days but she states she has not been able to urinate since 11 AM today. She denies any fevers or chills or low back pain. She has taken all her usual prescribed medications. She has not had any pelvic surgeries. She has had a prior tubal ligation as well as a cholecystectomy many years ago. She states she has a history of intermittent atrial fibrillation and does take medication for this condition. MD elicited complaint: dysuria, UTI and difficulty urinating Consistency: progressively worsening Associated symptoms: Deny abdominal pain, headache(s) or nausea Treatment prior to arrival: none Related Data Home Medications Medication Instructions Recorded Confirmed albuterol sulfate 90 mcg/actuation 2 puff inhalation QID PRN 10/30/22 10/30/22 aerosol inhaler Shortness Of Breath gabapentin 100 mg capsule 100 mg PO TID 10/30/22 10/30/22 hydroxychloroquine 200 mg tablet 400 mg PO DAILY 10/30/22 10/30/22 levothyroxine 75 mcg tablet 75 mcg PO DAILY 10/30/22 10/30/22 metoprolol succinate 25 mg 25 mg PO DAILY 10/30/22 10/30/22 tablet,extended release 24 hr mirabegron 25 mg tablet,extended 25 mg PO DAILY 10/30/22 10/30/22 release 24 hr (Myrbetriq) rosuvastatin 20 mg tablet 20 mg PO DAILY 10/30/22 10/30/22 upadacitinib 15 mg tablet,extended 15 mg PO DAILY 10/30/22 10/30/22 release 24 hr (Rinvoq) Previous Rx's Medication Instructions Recorded methscopolamine 2.5 mg tablet 2.5 mg PO TID PRN bladder spasms 09/22/24 #20 tabs sulfamethoxazole 800 1 tab PO BID 5 days #10 tabs 09/22/24 mg-trimethoprim 160 mg tablet Allergies Allergy/AdvReac Type Severity Reaction Status Date / Time latex Allergy Unknown Verified 09/22/24 15:03 Penicillins Allergy ALGY-Rash Verified 09/22/24 15:03 Review of Systems 2 Const: Denies: fever(s) or chills GI: Denies: abdominal pain, nausea, vomiting or diarrhea : Reports: difficulty voiding, urinary frequency, urinary hesitancy and oliguria; Denies: flank pain or hematuria Musc: Denies: neck pain, back pain, extremity pain or extremity swelling Skin/Breast: Denies: rash or pruritus Neuro: Denies: headache(s), numbness in extremities or weakness in extremities Psych: Denies: anxiety, depression or mood swings PFSH ED 2 PFSH: Medical History Osteoarthritis Rheumatoid arthritis Hypertension Surgical History Hx of cholecystectomy Family History Denies family history of CAD (coronary artery disease) Social History Smoking and tobacco/nicotine status: never used tobacco/nicotine Alcohol intake: never Substance/Drug Use: never Physical Exam 2 Narrative: EXAM NARRATIVE: Patient is alert and appears to be comfortable in no acute distress answers questions in a goal-directed fashion. Const: COMMON NORMALS: no acute distress, average body habitus, patient oriented x3 and alert GENERAL APPEARANCE: cooperative HENMT: COMMON NORMALS: normocephalic, Normal nasal mucous membranes and turbinates present and moist oral mucous membranes HEAD & SCALP: n ormocephalic NOSE: Normal nasal mucous membranes and turbinates present Eye: COMMON NORMALS: Equal, round and reactive pupils present and no scleral icterus PUPIL: Yes Equal, round and reactive pupils present Neck/C-Spine: COMMON NORMALS: full ROM Resp: COMMON NORMALS: normal respiratory effort and clear to auscultation bilaterally EFFORT & INSPECTION: Yes able to speak in complete sentences A USCULTATION: clear to auscultation bilaterally Cardio: COMMON NORMALS: regular rate, regular rhythm, No murmurs present (Cardio) and Peripheral pulses 2+ throughout RATE: regular rate RHYTHM: r egular rhythm PERIPHERAL PULSES: Peripheral pulses 2+ throughout GI: COMMON NORMALS: Normal to inspection, nondistended, normoactive bowel sounds present, Soft to palpation and non-tender PALPATION: Yes Soft to palpation OTHER: She has subjective fullness to palpation over suprapubic region. : COMMON NORMALS: Yes no CVA tenderness BLADDER/KIDNEY EXAM: Yes no CVA tenderness Back/Pelvis: COMMON NORMALS: no CVA tenderness, thoracic and lumbar spine normal to inspection, no thoracic nor lumbar tenderness and thoraco-lumbar ROM normal Extremity: COMMON NORMALS: normal to inspection, full ROM, no calf tenderness and no pedal edema Neuro: COMMON NORMALS: patient oriented x3, moves all extremities, no focal motor deficits and no sensory deficits noted SENSORIUM/ORIENTATION: Yes alert CRANIAL NERVES: Yes CN normal except as noted Skin: COMMON NORMALS: no rashes or lesions noted and no wounds GENERAL SKIN EXAM: no rashes or lesions noted Course 2 Reevaluation(s): Reevaluation #1: The patient is doing well discussed current findings and proposed plan of care with her. She relates that these findings of urinary retention and cystitis have been present on a recurring cycle. She states that it initially began post-COVID when she developed continence issues at that time. I discussed her unremarkable CT scan from 2021 which did not reveal any evidence of pelvic mass or other concerning pathology at that time and that it based on that I think we can give her a trial of removing the catheter and 5 days of antispasmodic and antibiotic with a primary care follow-up in a week to 10 days for repeat urinalysis. We also reviewed return precautions which she voiced understanding of. Time: 18:06 Vital Signs: Vital signs: Vital Signs Temperature 98.8 F 09/22/24 14:57 Pulse Rate 67 09/22/24 17:25 Respiratory Rate 16 09/22/24 17:25 Blood Pressure 147/89 09/22/24 17:25 Pulse Oximetry 95 09/22/24 17:25 Oxygen Delivery Me thod Room Air 09/22/24 17:25 MDM - Female Medical Decision Making Patient who presented with decreased ability to urinate onset today as noted in the history of present illness. Past history is notable for recurrent similar episodes in the past starting on or about post COVID times resulting in a hospitalization in [address] scan at that time. Bladder scan revealed in excess of 400 mL of urine a catheter was placed which decompressed her bladder and she was symptomatically improved. Urinalysis did reveal pyuria hematuria but no significant bacteria. She has slight elevation in her creatinine but this has been elevated higher than this number in the past. At this point plan is to remove the catheter and discharge her on symptomatic therapy with primary care follow-up and return precautions. Medical Records I reviewed the patient's medical records. Previous episodes of cystitis previous CT from 2021 reviewed Lab Data I reviewed the patient's lab results. 09/22/24 16:28 Laboratory Results Sodium 137 mmol/L (136-145) 09/22/24 16:28 Potassium 3.6 mmol/L (3.5-5.1) 09/22/24 16:28 Chloride 101 mmol/L (98-107) 09/22/24 16: Carbon Dioxide 27 mmol/L (22-29) 09/22/24 16:28 Anion Gap 12.6 (5-19) 09/22/24 16:28 BUN 16 mg/dL (8-23) 09/22/24 16:28 Creatinine 1.1 mg/dL (0.5-0.9) H 09/22/24 16:28 GFR Calculation 49.5 mL/min (90-130) L 09/22/24 16: Glucose 124 mg/dL (65-115) H 09/22/24 16:28 Calculated Osmolality 287 mOsm/kg (285-295) 09/22/24 16:28 Calcium 9.2 mg/dL (8.5-10.5) 09/22/24 16:28 Urine Color Yellow (Yellow) 09/22/24 17: Urine Appearance Clear (CLEAR) 09/22/24 17:01 Urine pH 6.5 (5-7) 09/22/24 17: Ur Specific [place] 1.010 (1.005-1.030) 09/22/24 17: Urine Protein 1+ (Negative) A 09/22/24 17: Urine Glucose (UA) Negative (Normal) 09/22/24 17: Urine Ketones Negative (Negative) 09/22/24 17: Urine Blood Non-haemolysed trace (Negative) 09/22/24 17: Urine Nitrate Negative (Negative) 09/22/24 17: Urine Bilirubin Negative (Negative) 09/22/24 17:01 Urine Urobilinogen 0.2 mg/dL (Negative) 09/22/24 17:01 Ur Leukocyte Esterase Trace (Negative) A 09/22/24 17:01 Urine RBC 6-10 /hpf (0-2) 09/22/24 17:01 Urine WBC 6-10 /hpf (0-5) 09/22/24 17:01 Ur Squamous Epith Cells 0-5 /hpf (0-5) 09/22/24 17:01 Amorphous Sediment Not Reportable 09/22/24 17:01 Urine Bacteria None seen /hpf (NONE) 09/22/24 17:01 Hyaline Casts 0.40 /lpf 09/22/24 17:01 No radiology studies performed this visit Discharge Plan Discharge Patient Disposition: Home Clinical Impression: Acute urinary retention, Cystitis Condition: Stable Prescriptions: New methscopolamine 2.5 mg tablet 2.5 mg PO TID PRN (Reason: bladder spasms) Qty: 20 0RF sulfamethoxazole-trimethoprim 800-160 mg tablet 1 tab PO BID 5 Days Qty: 10 0RF No Action levothyroxine 75 mcg tablet 75 mcg PO DAILY gabapentin 100 mg capsule 100 mg PO TID metoprolol succinate 25 mg tablet extended release 24 hr 25 mg PO DAILY hydroxychloroquine 200 mg tablet 400 mg PO DAILY albuterol sulfate 90 mcg/actuation HFA aerosol inhaler 2 puff INHALATION QID PRN (Reason: Shortness Of Breath) rosuvastatin 20 mg tablet 20 mg PO DAILY Myrbetriq 25 mg tablet extended release 24 hr 25 mg PO DAILY Rinvoq 15 mg tablet extended release 24 hr 15 mg PO DAILY Discharge Orders: Discharge ED (Routine); Ordered 09/22/24 Ordered By: Sean Cruz Discharge Diet: Usual diet Discharge Activity: Increase activity as tolerated Patient Instructions: Opioid Safety, Pain Management Activity Restrictions/Additional Instructions: As we discussed you had decreased ability urinate likely due to some bladder and urethral inflammation. We have provided 2 medications to help treat that condition. Is important you drink at least 60 glasses of water daily as well. We also recommend following up with your regular clinician in approximately 7 to 10 days to repeat a urinalysis and also follow-up for consideration for urology referral. If you develop recurrent or worsening or any other concerning symptoms you are should return to this emergency department for reevaluation. Coding Level of Care Code ED M48/M60 Tank Driver for Linda Garcia
[2024-09-22 17:01] LABS: Anion Gap 12.6 (5-19); Blood Urea Nitrogen 16 mg/dL (8-23); Calcium 9.2 mg/dL (8.5-10.5); Carbon Dioxide 27 mmol/L (22-29); Chloride 101 mmol/L (98-107); Glomerular Filtration Rate 49.5 mL/min (90-130); Glucose 124 mg/dL (65-115); Osmolality Calculated 287 mOsm/kg (285-295); Potassium 3.6 mmol/L (3.5-5.1); Sodium 137 mmol/L (136-145)
[2024-09-22 17:18] LABS: Bilirubin Urine Negative (Negative); Blood Urine Non-haemolysed trace (Negative); Glucose Urine UA Negative (Normal); Ketones Urine Negative (Negative); Leukocyte Esterase Urine Trace (Negative); Nitrate Urine Negative (Negative); Protein Urine 1+ (Negative); Urine Appearance Clear (CLEAR); Urine Color Yellow (Yellow); Urobilinogen Urine 0.2 mg/dL (Negative); pH Urine 6.5 (5-7)
[2024-09-22 17:20] LABS: Add Urine Microscopic? YES; Bacteria Urine None Seen /hpf; Squamous Epithelial Cell Urine 0-5 /hpf (0-5)
[2024-09-22 17:25] VITALS: BP 147/89; PULSE 67; RESP 16; O2SAT 95
[2024-09-22 17:30] LABS: Creatinine Clr Calc Pharmacy 51.9847
[2024-09-22 17:35] LABS: Add Urine Culture? No
[2024-09-22] MEDS: hyoscyamine ODT 0.125 mg Tablet PO (18:34)
[2024-09-22] MEDS: sulfamethoxazole-trimeth DS 160-800 mg Tablet 1 TAB PO (18:34)
[2024-09-22 18:51] VITALS: BP 120/87; PULSE 91; RESP 16; O2SAT 98
== END 2024-09-22 18:43 | disposition home or self-care (01) ==
PROVIDERS: Emergency Provider Emergency Medicine
DX: R33.8 Other retention of urine (principal); N30.90 Cystitis, unspecified without hematuria; I10 Essential (primary) hypertension
CPT/HCPCS: 36415; 51702; 51798; 80048; 81001; 99283

== ENCOUNTER 2024-10-06 19:01 | Emergency (ER) | payer MEDICARE, MEDICAID, SELFPAY ==
[2024-10-06 19:03] VITALS: BP 129/64; PULSE 57; RESP 18; TEMP 36.7; O2SAT 94; BMI 25.7
--- NOTE | 2024-10-06 19:12 | ED_ITS ---
HPI - Female Genitourinary General: Chief complaint: Urogenital-Female Stated complaint: Cant Pee Time Seen by Provider: 10/06/24 19:09 Source: patient Mode of arrival: ambulatory Limitations: no limitations History of Present Illness: 69-year-old female who states she has no t been able to urinate at all today. States she has fullness in her lower abdomen along with pain. States she has had retention in the past she is seen here little over a week ago had a Garza placed states they had removed at the same day she supposed to follow-up with urologist her PCP set her up for follow-up. She states that she has not been able to urinate at all today and feels obstructed again denies any fever Associated symptoms: Reports abdominal pain; Deny headache(s) or nausea Related Data Home Medications Medication Instructions Recorded Confirmed albuterol sulfate 90 mcg/actuation 2 puff inhalation QID PRN 10/30/22 10/30/22 aerosol inhaler Shortness Of Breath gabapentin 100 mg capsule 100 mg PO TID 10/30/22 10/30/22 hydroxychloroquine 200 mg tablet 400 mg PO DAILY 10/30/22 10/30/22 levothyroxine 75 mcg tablet 75 mcg PO DAILY 10/30/22 10/30/22 metoprolol succinate 25 mg 25 mg PO DAILY 10/30/22 10/30/22 tablet,extended release 24 hr mirabegron 25 mg tablet,extended 25 mg PO DAILY 10/30/22 10/30/22 release 24 hr (Myrbetriq) rosuvastatin 20 mg tablet 20 mg PO DAILY 10/30/22 10/30/22 upadacitinib 15 mg tablet,extended 15 mg PO DAILY 10/30/22 10/30/22 release 24 hr (Rinvoq) Previous Rx's Medication Instructions Recorded methscopolamine 2.5 mg tablet 2.5 mg PO TID PRN bladder spasms 09/22/24 #20 tabs Allergies Allergy/AdvReac Type Severity Reaction Status Date / Time latex Allergy Unknown Verified 10/06/24 19:08 Penicillins Allergy ALGY-Rash Verified 10/06/24 19:08 Review of Systems Const: Denies: fever(s), chills, body aches or change in appetite ENMT: Denies: throat pain or dental pain Card: Denies: chest pain Resp: Denies: dyspnea GI: Reports: abdominal pain; Denies: nausea, vomiting or diarrhea : Reports: difficulty voiding Musc: Denies: neck pain or back pain Skin/Breast: Denies: rash Neuro: Denies: headache(s) PFSH ED PFSH: Medical History Osteoarthritis Rheumatoid arthritis Hypertension Surgical History Hx of cholecystectomy Family History Denies family history of CAD (coronary artery disease) Social History Smoking and tobacco/nicotine status: never used tobacco/nicotine Alcohol intake: never Substance/Drug Use: never Physical Exam Const: COMMON NORMALS: no acute distress, patient oriented x3 and healthy appearing HENMT: COMMON NORMALS: normocephalic and atraumatic HEAD & SCALP: normocephalic and atraumatic Eye: COMMON NORMALS: conjunctivae normal CONJUNCTIVA: Yes conjunctivae normal Neck/C-Spine: COMMON NORMALS: full ROM and supple Chest: COMMONS NORMALS: normal inspection of the chest Resp: COMMON NORMALS: normal respiratory effort Cardio: COMMON NORMALS: regular rate RATE: regular rate GI: COMMON NORMALS: Normal to inspection, nondistended, normoactive bowel sounds present, Soft to palpation and no masses PALPATION: Yes Soft to palpation OTHER: tenderness of lower abd Extremity: COMMON NORMALS: normal to inspection and full ROM Neuro: COMMON NORMALS: patient oriented x3, moves all extremities and no focal motor deficits Psych: COMMON NORMALS: mental status grossly normal, Normal thought process present and cooperative THOUGHT PROCESS: Normal thought process present Skin: COMMON NORMALS: no rashes or lesions noted and no wounds GENERAL SKIN EXAM: no rashes or lesions noted Course Vital Signs: Vital signs: Vital Signs Temperature 98.0 F 10/06/24 19:03 Pulse Rate 58 L 10/06/24 20:02 Respiratory Rate 18 10/06/24 19:03 Blood Pressure 119/88 10/06/24 20:02 Pulse Oximetry 92 10/06/24 20:02 Oxygen Delivery Me thod Room Air 10/06/24 20:02 MDM - Female Medical Decision Making Patient presents with acute urinary retention did place a Garza she feels much improved no UTI we will leave Garza in place with leg bag she is follow-up with urologist return if worsening she understands agrees to plan Medical Records I reviewed the patient's medical records. Lab Data I reviewed the patient's lab results. Laboratory Results Urine Color Yellow (Yellow) 10/06/24 19:58 Urine Appearance Clear (CLEAR) 10/06/24 19:58 Urine pH 5.0 (5-7) 10/06/24 19:58 Ur Specific [place] 1.009 (1.005-1.030) 10/06/24 19:58 Urine Protein Trace (Negative) A 10/06/24 19:58 Urine Glucose (UA) Negative (Normal) 10/06/24 19:58 Urine Ketones Negative (Negative) 10/06/24 19:58 Urine Blood 2+ (Negative) A 10/06/24 19:58 Urine Nitrate Negative (Negative) 10/06/24 19:58 Urine Bilirubin Negative (Negative) 10/06/24 19:58 Urine Urobilinogen 0.2 mg/dL (Negative) 10/06/24 19:58 Ur Leukocyte Esterase Negative (Negative) 10/06/24 19:58 Urine RBC 3-5 /hpf (0-2) 10/06/24 19:58 Urine WBC 0-5 /hpf (0-5) 10/06/24 19:58 Ur Squamous Epith Cells 0-5 /hpf (0-5) 10/06/24 19:58 Amorphous Sediment Not Reportable 10/06/24 19:58 Urine Bacteria None seen /hpf (NONE) 10/06/24 19:58 Hyaline Casts 1.21 /lpf 10/06/24 19:58 No radiology studies performed this visit Discharge Plan Discharge Patient Disposition: Home Clinical Impression: Urinary retention Condition: Stable Prescriptions: No Action levothyroxine 75 mcg tablet 75 mcg PO DAILY gabapentin 100 mg capsule 100 mg PO TID metoprolol succinate 25 mg tablet extended release 24 hr 25 mg PO DAILY hydroxychloroquine 200 mg tablet 400 mg PO DAILY albuterol sulfate 90 mcg/actuation HFA aerosol inhaler 2 puff INHALATION QID PRN (Reason: Shortness Of Breath) rosuvastatin 20 mg tablet 20 mg PO DAILY Myrbetriq 25 mg tablet extended release 24 hr 25 mg PO DAILY Rinvoq 15 mg tablet extended release 24 hr 15 mg PO DAILY methscopolamine 2.5 mg tablet 2.5 mg PO TID PRN (Reason: bladder spasms) Qty: 20 0RF Discharge Orders: Discharge ED (Routine); Ordered 10/06/24 Ordered By: Lissa Tilley Referrals: Pawel Campos MD [Primary Care Provider] - Discharge Diet: Advance as tolerated Discharge Activity: Resume usual activity Patient Instructions: Garza Catheter Placement and Care (ED), Acute Urinary Retention in Women (ED) Coding Level of Care Code ED Artist Color Separation for Linda Garcia
[2024-10-06 20:02] VITALS: BP 119/88; PULSE 58; O2SAT 92
[2024-10-06 20:06] LABS: Bilirubin Urine Negative (Negative); Blood Urine 2+ (Negative); Glucose Urine UA Negative (Normal); Ketones Urine Negative (Negative); Leukocyte Esterase Urine Negative (Negative); Nitrate Urine Negative (Negative); Protein Urine Trace (Negative); Specific Gravity, Urine 1.009 (1.005-1.030); Urine Appearance Clear (CLEAR); Urine Color Yellow (Yellow); Urobilinogen Urine 0.2 mg/dL (Negative)
[2024-10-06 20:11] LABS: Add Urine Microscopic? YES; Bacteria Urine None Seen /hpf; Hyaline Casts Urine 1.21 /lpf; Squamous Epithelial Cell Urine 0-5 /hpf (0-5); WBC Urine 0-5 /hpf (0-5)
--- NOTE | 2024-10-06 21:01 | PC.NURSE ---
Leg bag placed. Instructions for use and negron cath care given. Pt verbalized understanding.
[2024-10-06 21:04] VITALS: BP 148/82; PULSE 72; O2SAT 95
== END 2024-10-06 21:07 | disposition home or self-care (01) ==
PROVIDERS: Emergency Provider Emergency Medicine; PCP Family Medicine
DX: R33.9 Retention of urine, unspecified (principal); I10 Essential (primary) hypertension
CPT/HCPCS: 51702; 81001; 99283

== ENCOUNTER 2024-10-16 13:35 | Emergency (ER) | payer MEDICARE, MEDICAID, SELFPAY ==
[2024-10-16 13:40] VITALS: BP 170/124; PULSE 100; RESP 16; TEMP 36.7; O2SAT 97; BMI 25.3
--- NOTE | 2024-10-16 15:23 | ED_ITS ---
HPI - Female Genitourinary General: Chief complaint: Urogenital-Female Stated complaint: Catheter is coming loose Time Seen by Provider: 10/16/24 15:07 Source: patient Mode of arrival: ambulatory Limitations: no limitations History of Present Illness: Patient presents emergency department today for evaluation treatment of concerns with leaking around her indwelling Garza catheter. Patient had this indwelling Garza catheter placed approximately 10 days ago for acute urinary retention. Was seen here in the emergency department for placement of this Garza at that time. Patient had no signs of urinary tract infection. Was going to follow-up with [facility] through [facility] in [place] but, family states they have tried multiple times to get the patient scheduled for follow-up appointment but, has been having difficulty as the clinic indicates they continue to need records. Family states they have had records sent several times and are still struggling to get an appointment at this time. Patient denies abdominal pain. No vomiting or chills. Patient states she had about 200 cc of output in her Garza bag when she woke up this morning but, since that time has had very little urine output into the bag stating most of it seems to be leaking around the tubing. Related Data Home Medications Medication Instructions Recorded Confirmed albuterol sulfate 90 mcg/actuation 2 puff inhalation QID PRN 10/30/22 10/30/22 aerosol inhaler Shortness Of Breath gabapentin 100 mg capsule 100 mg PO TID 10/30/22 10/30/22 hydroxychloroquine 200 mg tablet 400 mg PO DAILY 10/30/22 10/30/22 levothyroxine 75 mcg tablet 75 mcg PO DAILY 10/30/22 10/30/22 metoprolol succinate 25 mg 25 mg PO DAILY 10/30/22 10/30/22 tablet,extended release 24 hr mirabegron 25 mg tablet,extended 25 mg PO DAILY 10/30/22 10/30/22 release 24 hr (Myrbetriq) rosuvastatin 20 mg tablet 20 mg PO DAILY 10/30/22 10/30/22 upadacitinib 15 mg tablet,extended 15 mg PO DAILY 10/30/22 10/30/22 release 24 hr (Rinvoq) Previous Rx's Medication Instructions Recorded methscopolamine 2.5 mg tablet 2.5 mg PO TID PRN bladder spasms 09/22/24 #20 tabs cephalexin 500 mg capsule 500 mg PO TID 7 days #21 caps 10/16/24 Allergies Allergy/AdvReac Type Severity Reaction Status Date / Time latex Allergy Unknown Verified 10/06/24 19:08 Penicillins Allergy ALGY-Rash Verified 10/06/24 19:08 Review of Systems General: Reports: 10 or more systems reviewed and unremarkable except in HPI and below PFSH ED PFSH: Medical History Osteoarthritis Rheumatoid arthritis Hypertension Surgical History Hx of cholecystectomy Family History Denies family history of CAD (coronary artery disease) Social History Smoking and tobacco/nicotine status: never used tobacco/nicotine Alcohol intake: never Substance/Drug Use: never Physical Exam Const: COMMON NORMALS: no acute distress, average body habitus, patient oriented x3 and alert HENMT: COMMON NORMALS: normocephalic, atraumatic, hearing grossly normal bilaterally and moist oral mucous membranes HEAD & SCALP: normocephalic and atraumatic Eye: COMMON NORMALS: Equal, round and reactive pupils present, EOMs intact bilaterally and conjunctivae normal CONJUNCTIVA: Yes conjunctivae normal PUPIL: Yes Equal, round and reactive pupils present Neck/C-Spine: COMMON NORMALS: no JVD Lymph: LYMPHATIC: no lymphadenopathy noted Resp: COMMON NORMALS: normal respiratory effort, No retractions and No use of accessory muscles Cardio: COMMON NORMALS: no JVD and regular rate RATE: regular rate GI: OTHER: Normoactive bowel sounds. Patient is nontender in the suprapubic region. Abdomen is soft. Extremity: COMMON NORMALS: normal to inspection, full ROM and capillary refill normal Neuro: COMMON NORMALS: patient oriented x3 SENSORIUM/ORIENTATION: Yes alert Psych: COMMON NORMALS: mental status grossly normal, cooperative, normal affect, speech normal and activity/motor behavior normal SPEECH: Yes normal speech Course Vital Signs: Vital signs: Vital Signs Temperature 98.0 F 10/16/24 13:40 Pulse Rate 98 10/16/24 17:56 Respiratory Rate 16 10/16/24 13:40 Blood Pressure 121/72 10/16/24 17:56 Pulse Oximetry 94 10/16/24 17:56 Oxygen Delivery Me thod Room Air 10/16/24 13:40 MDM - Female Medical Decision Making Patient presents emergency department today for concerns of malfunctioning of her indwelling Garza catheter. Reports she has been having leaking since she had it put in 10 days ago but, acutely worsened today. Has not had hardly any urine output into the bag stating it has all leaked from around her tubing. Patient has her paperwork with her indicating the referral to urology in [place]. I spoke with the nurse about different options we have for checking her tubing. She indicated that patient may need a different size and would attempt placement. She indicated they were able to place a larger size Garza catheter. We then provided patient p.o. challenge which resulted in urine production into the bag and no leaking. We did test the patient's urine and was found to have bacteria, white blood cells, leukocyte esterase, and nitrites. Discussed with the patient that if she just had bacteria without other significant findings, I would most likely wait to see if there was any growth on culture however, with the nitrites and white blood cells present, I would recommend starting antibiotics. I did give her a prescription for Keflex however, patient reports that she keeps medication on hand for urinary tract infections which she can use. I encouraged her to start her medications this evening and increase her clear fluids. I also encouraged her to continue reaching out to the urology clinic if she will need follow-up due to her acute urinary retention and current indwelling Garza catheter. However, she is to be seen and reevaluated back in the emergency department for any developing fever, abdominal pain, or vomiting. She verbalizes understanding and agreement to treatment plan. Differential Diagnosis Unlikely abdominal pain, acute appendicitis, constipation, gastroenteritis or small bowel obstruction Lab Data Laboratory Results Urine Color Yellow (Yellow) 10/16/24 16:33 Urine Appearance Cloudy (CLEAR) A 10/16/24 16:33 Urine pH 6.0 (5-7) 10/16/24 16:33 Ur Specific [employer] 1.029 (1.005-1.030) 10/16/24 16:33 Urine Protein 2+ (Negative) A 10/16/24 16:33 Urine Glucose (UA) Negative (Normal) 10/16/24 16:33 Urine Ketones Trace (Negative) 10/16/24 16:33 Urine Blood 3+ (Negative) A 10/16/24 16:33 Urine Nitrate Positive (Negative) A 10/16/24 16:33 Urine Bilirubin Negative (Negative) 10/16/24 16:33 Urine Urobilinogen 1.0 mg/dL (Negative) 10/16/24 16:33 Ur Leukocyte Esterase Trace (Negative) A 10/16/24 16:33 Urine RBC 21-50 /hpf (0-2) H 10/16/24 16:33 Urine WBC 11-20 /hpf (0-5) H 10/16/24 16:33 Ur Squamous Epith Cells 6-10 /hpf (0-5) 10/16/24 16:33 Calcium Oxalate Crystal 5-10 /hpf H 10/16/24 16:33 Amorphous Sediment Not Reportable 10/16/24 16:33 Urine Bacteria 1+ /hpf (NONE) H 10/16/24 16:33 Hyaline Casts 14.47 /lpf 10/16/24 16:33 No radiology studies performed this visit Discharge Plan Discharge Patient Disposition: Home Clinical Impression: Urinary tract infection, Complication of Garza catheter Condition: Stable Prescriptions: New cephalexin 500 mg capsule 500 mg PO TID 7 Days Qty: 21 0RF No Action levothyroxine 75 mcg tablet 75 mcg PO DAILY gabapentin 100 mg capsule 100 mg PO TID metoprolol succinate 25 mg tablet extended release 24 hr 25 mg PO DAILY hydroxychloroquine 200 mg tablet 400 mg PO DAILY albuterol sulfate 90 mcg/actuation HFA aerosol inhaler 2 puff INHALATION QID PRN (Reason: Shortness Of Breath) rosuvastatin 20 mg tablet 20 mg PO DAILY Myrbetriq 25 mg tablet extended release 24 hr 25 mg PO DAILY Rinvoq 15 mg tablet extended release 24 hr 15 mg PO DAILY methscopolamine 2.5 mg tablet 2.5 mg PO TID PRN (Reason: bladder spasms) Qty: 20 0RF Discharge Orders: Discharge ED (Routine); Ordered 10/16/24 Ordered By: Mini Cummings Referrals: Pawel Campos MD [Primary Care Provider] - Discharge Diet: Usual diet Discharge Activity: Increase activity as tolerated Patient Instructions: Garza Catheter Placement and Care (ED) Activity Restrictions/Additional Instructions: Urinalysis today does show findings of urinary tract infection with bacteria, white blood cells, nitrites present. Will culture this to determine the exact bacterial cause but, in the meantime, we will start you on oral antibiotics. I encourage you to continue pressing for a urology appointment for your follow-up. We seem to have success today with a different size catheter placement as you have not been leaking. Also, we are getting urine output into your Garza bag. Continue to watch for any leaking, fever, vomiting, or abdominal pain. If these occur he should be seen and reevaluated in the acute setting. Otherwise, continue with the plan for follow-up with urology. Coding Level of Care Code ED [employer] for Linda Garcia
--- NOTE | 2024-10-16 16:28 | PC.NURSE ---
removed 16French negron catheter and replaced with 18French. attached to leg bag. urine output upon placement
[2024-10-16 16:30] VITALS: BP 125/90; PULSE 122; O2SAT 92
[2024-10-16 16:47] LABS: Bilirubin Urine Negative (Negative); Blood Urine 3+ (Negative); Glucose Urine UA Negative (Normal); Ketones Urine Trace (Negative); Leukocyte Esterase Urine Trace (Negative); Nitrate Urine Positive (Negative); Protein Urine 2+ (Negative); Specific Gravity, Urine 1.029 (1.005-1.030); Urine Appearance Cloudy (CLEAR); Urine Color Yellow (Yellow)
[2024-10-16 16:53] LABS: Add Urine Microscopic? YES; Bacteria Urine 1+ /hpf; Hyaline Casts Urine 14.47 /lpf; RBC Urine 21-50 /hpf (0-2)
[2024-10-16 17:07] LABS: UA Slide Review UA Slide Review Perf
[2024-10-16 17:09] LABS: Add Urine Culture? Yes
[2024-10-16 17:56] VITALS: BP 121/72; PULSE 98; O2SAT 94
== END 2024-10-16 17:57 | disposition home or self-care (01) ==
PROVIDERS: Emergency Medicine; Emergency Provider Physician Assistant; PCP Family Medicine
DX: N39.0 Urinary tract infection, site not specified (principal); T83.091A Other mechanical complication of indwelling urethral catheter, initial encounter; I10 Essential (primary) hypertension; X58.XXXA Exposure to other specified factors, initial encounter
CPT/HCPCS: 51702; 51798; 81001; 87086; 87186; 99283

== ENCOUNTER 2025-02-22 14:20 | Emergency (ER) | payer OTHER, MEDICAID, SELFPAY ==
[2025-02-22 14:24] VITALS: BP 152/97; PULSE 144; RESP 18; TEMP 37.4; O2SAT 94
--- NOTE | 2025-02-22 15:43 | W.ED.FEMALGU ---
HPI - Female Genitourinary General: Chief complaint: Urogenital-Female Stated complaint: urinary Time Seen by Provider: 02/22/25 15:24 History of Present Illness: 69-year-old female who presents to the emergency room with urinary retention and pelvic pain. She is standing and cannot sit down because she is in such pain. She is a bit tachycardic. She says she has been having dysuria and was treated for urinary tract infection. She shows me her bottle of medicine and she is been on Macrobid. She has not had any urination in about 10 hours. Said she had some dysuria before. No fevers. No altered mental status. No focal motor deficits. No chest pain. No vomiting. She apparently had seen her primary in the [place] and after catheter earlier because of urinary retention. Related Data Home Medications ?Medication ?Instructions ?Recorded ?Confirmed albuterol sulfate 90 mcg/actuation 2 puff inhalation QID PRN 10/30/22 02/22/25 aerosol inhaler Shortness Of Breath gabapentin 100 mg capsule 100 mg PO TID 10/30/22 02/22/25 hydroxychloroquine 200 mg tablet 400 mg PO DAILY 10/30/22 02/22/25 metoprolol succinate 25 mg 25 mg PO DAILY 10/30/22 02/22/25 tablet,extended release 24 hr mirabegron 25 mg tablet,extended 25 mg PO DAILY 10/30/22 02/22/25 release 24 hr (Myrbetriq) rosuvastatin 20 mg tablet 20 mg PO DAILY 10/30/22 02/22/25 upadacitinib 15 mg tablet,extended 15 mg PO DAILY 10/30/22 02/22/25 release 24 hr (Rinvoq) furosemide 20 mg tablet 20 mg PO DAILY 02/22/25 02/22/25 levothyroxine 100 mcg tablet 100 mcg PO DAILY 02/22/25 02/22/25 nitrofurantoin 100 mg PO BID 02/22/25 02/22/25 monohydrate/macrocrystals 100 mg capsule sulfamethoxazole 800 1 tab PO DAILY 02/22/25 02/22/25 mg-trimethoprim 160 mg tablet venlafaxine 25 mg tablet 25 mg PO BID 02/22/25 02/22/25 verapamil 120 mg tablet 120 mg PO TID 04/12/25 04/12/25 Previous Rx's ?Medication ?Instructions ?Recorded methscopolamine 2.5 mg tablet 2.5 mg PO TID PRN bladder spasms 09/22/24 #20 tabs cefdinir 300 mg capsule 300 mg PO BID 7 days #14 caps 02/22/25 phenazopyridine 100 mg tablet 100 mg PO Q8H 6 doses #6 tabs 02/22/25 (Pyridium) tamsulosin 0.4 mg capsule (Flomax) 0.4 mg PO DAILY #30 caps 02/22/25 Allergies Allergy/AdvReac Type Severity Reaction Status Date / Time latex Allergy Unknown Verified 02/22/25 14:28 Penicillins Allergy ALGY-Rash Verified 02/22/25 14:28 Review of Systems Narrative: Constitutional symptoms: Negative except as documented in HPI. Skin symptoms: Negative except as documented in HPI. Eye symptoms: Negative except as documented in HPI. ENMT symptoms: Negative except as documented in HPI. Respiratory symptoms: Negative except as documented in HPI. Cardiovascular symptoms: Negative except as documented in HPI. Gastrointestinal symptoms: Negative except as documented in HPI. Genitourinary symptoms: Negative except as documented in HPI. Musculoskeletal symptoms: Negative except as documented in HPI. Neurologic symptoms: Negative except as documented in HPI. Psychiatric symptoms: Negative except as documented in HPI. Endocrine symptoms: Negative except as documented in HPI. PFSH ED PFSH: Medical History Osteoarthritis Rheumatoid arthritis Hypertension Surgical History Hx of cholecystectomy Family History Denies family history of CAD (coronary artery disease) Social History Smoking and tobacco/nicotine status: never used tobacco/nicotine Alcohol intake: never Substance/Drug Use: never Physical Exam Narrative: EXAM NARRATIVE: General: Alert, no acute distress. Skin: Warm, dry. Head: Normocephalic, atraumatic. Neck: Supple, trachea midline. Eye: Extraocular movements are intact. Ears, nose, mouth and throat: mucosa moist. Cardiovascular: Regular, Normal peripheral perfusion. Respiratory: Lungs are clear to auscultation, respirations are non-labored, breath sounds are equal, Symmetrical chest wall expansion. Gastrointestinal: Soft, suprapubic distention and extreme tenderness, Non distended Musculoskeletal: Normal ROM, no deformity. Neurological: Alert and oriented, No focal neurological deficit observed. Psychiatric: Cooperative, appropriate mood & affect. Course Vital Signs: Vital signs: Vital Signs Temperature 99.3 F 02/22/25 14:24 Pulse Rate 144 H 02/22/25 14:24 Respiratory Rate 18 02/22/25 14:24 Blood Pressure 152/97 02/22/25 14:24 Pulse Oximetry 94 02/22/25 14:24 MDM - Female Medical Decision Making Medical decision making: Differential diagnosis for patient with urinary retention including but not limited to and based on the above HPI, review of systems and physical exam:-: Urinary retention. Urinary tract infection. concerns for systemic infection, renal dysfunction Orders placed to evaluate differential diagnosis based on the above differential, HPI and physical exam Lab Review: Laboratory results were reviewed and interpreted by myself the emergency room physician. No leukocytosis. No anemia. Stable renal function with BUN/creatinine of 13 and 1.1. Mild signs of urinary tract infection on urinalysis. Given her symptoms and that she is partially treated with Macrobid giving Rocephin here in the emergency room and a Garza catheter was placed I reviewed the patient's medical record. Reexamination: Pain relieved with Garza catheter placement. About 750 cc/h. She is much improved on discharge. Assessment and plan: Urinary retention Urinary tract infection ? IV Rocephin. P.o. Pyridium and p.o. Flomax in the emergency room. - Discharged home - Discussed plan with patient. Answered any questions. - Evaluation and treatment of this problem were appropriate in the emergency setting. Lab Data 02/22/25 15:42 02/22/25 15:42 Laboratory Results WBC 8.19 10^3/uL (3.29-11.43) 02/22/25 15:42 RBC 5.53 10^6/uL (3.85-5.65) 02/22/25 15:42 Hgb 14.80 g/dL (11.27-16.99) 02/22/25 15:42 Hct 45.1 % (36-47) 02/22/25 15:42 MCV 81.6 fl (85-98) L 02/22/25 15:42 MCH 26.8 pg (27-33) L 02/22/25 15:42 MCHC 32.8 g/dL (30-55) 02/22/25 15:42 RDW 15.0 % (12.1-15.1) 02/22/25 15:42 Plt Count 253 10^3/cmm (157-399) 02/22/25 15:42 MPV 11.1 fL (7.4-10.4) H 02/22/25 15:42 Neut % (Auto) 76.3 % 02/22/25 15:42 Lymph % (Auto) 14.4 % 02/22/25 15:42 [place] % (Auto) 6.8 % 02/22/25 15:42 Eos % (Auto) 1.6 % 02/22/25 15:42 Baso % (Auto) 0.5 % 02/22/25 15:42 Neut # (Auto) 6.25 10^3/uL (1.8-7.7) 02/22/25 15:42 Lymph # (Auto) 1.2 10^3/uL (0.8-4.8) 02/22/25 15:42 [place] # (Auto) 0.6 10^3/uL (0.2-0.9) 02/22/25 15:42 Eos # (Auto) 0.1 10^3/uL (0.0-0.8) 02/22/25 15:42 Baso # (Auto) 0.0 10^3/uL (0.0-0.1) 02/22/25 15:42 Nucleated RBC % (auto) 0 % 02/22/25 15: Nucleated RBCs # 0.0 /100WBC 02/22/25 15:42 Sodium 137 mmol/L (136-145) 02/22/25 15:42 Potassium 3.8 mmol/L (3.5-5.1) 02/22/25 15:42 Chloride 102 mmol/L (98-107) 02/22/25 15:42 Carbon Dioxide 20 mmol/L (22-29) L 02/22/25 15:42 Anion Gap 18.8 (5-19) 02/22/25 15:42 BUN 13 mg/dL (8-23) 02/22/25 15:42 Creatinine 1.1 mg/dL (0.5-0.9) H 02/22/25 15:42 GFR Calculation 49.5 mL/min (90-130) L 02/22/25 15:42 Glucose 173 mg/dL (65-115) H 02/22/25 15:42 Calculated Osmolality 288 mOsm/kg (285-295) 02/22/25 15:42 Lactic Acid 2.5 mmol/L (0.5-2.2) H 02/22/25 15:42 Calcium 9.7 mg/dL (8.5-10.5) 02/22/25 15:42 Total Bilirubin 0.5 mg/dL (0.15-1.2) 02/22/25 15:42 AST 22 U/L (0-32) 02/22/25 15:42 ALT 15 U/L (0-33) 02/22/25 15:42 Alkaline Phosphatase 112 U/L (35-105) H 02/22/25 15:42 Total Protein 8.8 g/dL (6.6-8.7) H 02/22/25 15:42 Albumin 4.1 g/dL (3.5-5.2) 02/22/25 15:42 Globulin 4.7 g/dL (1.3-4.6) H 02/22/25 15:42 Urine Color Yellow (Yellow) 02/22/25 16:10 Urine Appearance Clear (CLEAR) 02/22/25 16:10 Urine pH 6 (5-7) 02/22/25 16:10 Ur Specific [employer] 1.010 (1.005-1.030) 02/22/25 16:10 Urine Protein Neg (Negative) 02/22/25 16:10 Urine Glucose (UA) Norm (Normal) 02/22/25 16:10 Urine Ketones Negative (Negative) 02/22/25 16:10 Urine Blood 2+ (Negative) H 02/22/25 16:10 Urine Nitrate Negative (Negative) 02/22/25 16:10 Urine Bilirubin Neg (Negative) 02/22/25 16:10 Urine Urobilinogen Neg mg/dL (Negative) 02/22/25 16:10 Ur Leukocyte Esterase Negative (Negative) 02/22/25 16:10 Urine RBC 6-10 /hpf (0-2) 02/22/25 16:10 Urine WBC 6-10 /hpf (0-5) 02/22/25 16:10 Ur Squamous Epith Cells 0-5 /hpf (0-5) 02/22/25 16:10 Amorphous Sediment Not Reportable 02/22/25 16:10 Urine Bacteria None seen /hpf (NONE) 02/22/25 16:10 Hyaline Casts 0.40 /lpf 02/22/25 16:10 No radiology studies performed this visit Discharge Plan Discharge Patient Disposition: Home Clinical Impression: Urinary tract infection, Urinary retention Condition: Stable Prescriptions: New tamsulosin [Flomax] 0.4 mg capsule 0.4 mg PO DAILY Qty: 30 0RF phenazopyridine [Pyridium] 100 mg tablet 100 mg PO Q8H Qty: 6 0RF cefdinir 300 mg capsule 300 mg PO BID 7 Days Qty: 14 0RF No Action gabapentin 100 mg capsule 100 mg PO TID metoprolol succinate 25 mg tablet extended release 24 hr 25 mg PO DAILY hydroxychloroquine 200 mg tablet 400 mg PO DAILY albuterol sulfate 90 mcg/actuation HFA aerosol inhaler 2 puff INHALATION QID PRN (Reason: Shortness Of Breath) rosuvastatin 20 mg tablet 20 mg PO DAILY mirabegron [Myrbetriq] 25 mg tablet extended release 24 hr 25 mg PO DAILY Rinvoq 15 mg tablet extended release 24 hr 15 mg PO DAILY methscopolamine 2.5 mg tablet 2.5 mg PO TID PRN (Reason: bladder spasms) Qty: 20 0RF venlafaxine 25 mg tablet 25 mg PO BID sulfamethoxazole-trimethoprim 800-160 mg tablet 1 tab PO DAILY verapamil 120 mg tablet 120 mg PO TID levothyroxine 100 mcg tablet 100 mcg PO DAILY furosemide 20 mg tablet 20 mg PO DAILY nitrofurantoin monohyd/m-cryst 100 mg capsule 100 mg PO BID Discharge Orders: Discharge ED (Routine); Ordered 02/22/25 Ordered By: Kizzy Aj Referrals: Jarad Matthews [Referring] - 4-7 days (Please follow-up with your primary care provider or urology. You can follow with Dr. Matthews or the urologist of your choosing. You will need Garza catheter removed in 3 to 7 days.) Pawel Campos MD [Primary Care Provider] - Discharge Diet: Usual diet Discharge Activity: Increase activity as tolerated Patient Instructions: Garza Catheter Placement and Care (ED), How to Change a Catheter Drainage Bag (DC), Opioid Safety, Pain Management Activity Restrictions/Additional Instructions: Thank you for choosing [facility] for your healthcare needs today. Please realize this is an emergency room and that we are providing you with a medical screening exam and this may not be complete and all inclusive of all the testing and or work up that you may need to determine your ailment or severity of your illness. You have been screened and evaluated and felt safe for discharge. Health conditions do change or evolve sometimes and as such it is important that you follow up with your Primary Doctor to be re checked, 3-5 days is a general good time frame for follow up. You are always welcome to return to the ED for re assessment if your symptoms are worsening or you have new concerns Print Language: Bangladeshi Coding Level of Care Code ED [employer] for Linda Garcia
--- NOTE | 2025-02-22 15:44 | ECG_ITS ---
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 Measurements Intervals [place] Rate: 107 P: 78 TN: 176 QRS: -22 QRSD: 117 T: -15 QT: 342 QTc: 458 Interpretive Statements SINUS TACHYCARDIA WITH OCCASIONAL VENTRICULAR PREMATURE COMPLEXES BORDERLINE LEFT AXIS DEVIATION [QRS AXIS < -20] LEFT VENTRICULAR HYPERTROPHY AND ST-T CHANGE [VOLTAGE CRITERIA PLUS ST/T ABNORMALITY] Compared to ECG 03/29/2023 00:10:33 Ventricular premature complex(es) now present ST (T wave) deviation still present Electronically Signed On 02-23-2025 21:15:42 CDT by Sonali Treadwell M.D. [email or web address]
[2025-02-22 15:48] LABS: Basophils % 0.5 %; Eosinophils # 0.1 10^3/uL (0.0-0.8); Eosinophils % 1.6 %; Hematocrit 45.1 % (36-47); Lymphocytes # 1.2 10^3/uL (0.8-4.8); Lymphocytes % 14.4 %; Mean Corpuscular HGB Conc 32.8 g/dL (30-55); Mean Corpuscular Hemoglobin 26.8 pg (27-33); Mean Corpuscular Volume 81.6 fl (85-98); Mean Platelet Volume 11.1 fL (7.4-10.4); Monocytes # 0.6 10^3/uL (0.2-0.9); Monocytes % 6.8 %; Neutrophils # 6.25 10^3/uL (1.8-7.7); Neutrophils % 76.3 %; Nucleated Red Blood Cells % 0 %; Platelet Count 253 10^3/cmm (157-399); Red Blood Count 5.53 10^6/uL (3.85-5.65); White Blood Count 8.19 10^3/uL (3.29-11.43)
[2025-02-22 16:04] LABS: Alanine Aminotransferase 15 U/L (0-33); Albumin Level 4.1 g/dL (3.5-5.2); Alkaline Phosphatase 112 U/L (35-105); Anion Gap 18.8 (5-19); Aspartate Amino Transferase 22 U/L (0-32); Blood Urea Nitrogen 13 mg/dL (8-23); Calcium 9.7 mg/dL (8.5-10.5); Carbon Dioxide 20 mmol/L (22-29); Chloride 102 mmol/L (98-107); Creatinine Clr Calc Pharmacy 51.8425; Globulin 4.7 g/dL (1.3-4.6); Glomerular Filtration Rate 49.5 mL/min (90-130); Glucose 173 mg/dL (65-115); Osmolality Calculated 288 mOsm/kg (285-295); Potassium 3.8 mmol/L (3.5-5.1); Sodium 137 mmol/L (136-145); Total Bilirubin 0.5 mg/dL (0.15-1.2); Total Protein 8.8 g/dL (6.6-8.7)
[2025-02-22] MEDS: sodium chloride 0.9% 1,000 ML 999 ML IV (16:08)
[2025-02-22 16:10] LABS: Lactic Sepsis W/Reflex 2.5 mmol/L (0.5-2.2)
[2025-02-22 16:12] LABS: Reflex Lactate Order REFLEX LACTIC ORDERD
[2025-02-22 16:17] LABS: Urine Appearance Clear (CLEAR); Urine Color Yellow (Yellow); pH Urine 6 (5-7)
[2025-02-22 16:18] LABS: Bilirubin Urine Neg (Negative); Blood Urine 2+ (Negative); Glucose Urine UA Norm (Normal); Ketones Urine Negative (Negative); Leukocyte Esterase Urine Negative (Negative); Nitrate Urine Negative (Negative); Protein Urine Neg (Negative); Urobilinogen Urine Neg (Negative)
[2025-02-22 16:20] LABS: Bacteria Urine None Seen /hpf; Squamous Epithelial Cell Urine 0-5 /hpf (0-5)
[2025-02-22] MEDS: tamsulosin 0.4 mg Capsule PO (16:46)
[2025-02-22] MEDS: cefTRIAXone 1,000 mg SDV 1000 MG IVP (16:46)
[2025-02-22] MEDS: phenazopyridine 100 mg Tablet 200 MG PO (16:46)
[2025-02-22 17:18] VITALS: BP 130/71; PULSE 84; O2SAT 97
[2025-02-22 17:43] VITALS: BP 130/71; PULSE 74; O2SAT 97
== END 2025-02-22 17:44 | disposition home or self-care (01) ==
PROVIDERS: Emergency Provider Emergency Medicine; PCP Family Medicine
DX: N39.0 Urinary tract infection, site not specified (principal); R33.9 Retention of urine, unspecified; I10 Essential (primary) hypertension
CPT/HCPCS: 80053; 81001; 83605; 85025; 87040; 93005; 96361; 96374; 99284; J0696; J7030; J9999